=== PATIENT | male | born 1950 | race Caucasian/White ===

== ENCOUNTER 2016-09-30 06:31 | Outpatient (CLI) | payer MEDICARE, OTHER | END 2016-09-30 06:32 | disposition home or self-care (01) | DX: R97.20 Elevated prostate specific antigen [PSA] (principal) ==

== ENCOUNTER 2017-01-05 10:27 | Outpatient (CLI) | payer MEDICARE, OTHER | END 2017-01-05 10:28 | LOC: LAB.WCP 10:27 | PROVIDERS: ATTEND Urology | DX: R97.20 Elevated prostate specific antigen [PSA] (principal) | CPT/HCPCS: 36415; 84153 ==

== ENCOUNTER 2017-02-21 11:02 | Day surgery (SDC) | payer MEDICARE, OTHER ==
[2017-02-21] MEDS ORDERED: LACTATED RINGERS 1,000 ML IV ONE ×2 (11:39→12:21)
[2017-02-21] MEDS ORDERED: MIDAZOLAM 2 MG/2 ML VIAL IVP ONE (12:16)
[2017-02-21] MEDS ORDERED: fentaNYL 100 MCG/2 ML VIAL IVP ONE (12:16)
[2017-02-21 13:36] VITALS: BP 113/76
== END 2017-02-21 11:03 | disposition home or self-care (01) ==
LOC: SDS 11:02
PROVIDERS: ATTEND Surgery
PROC: 0DBM8ZX Excision of Descending Colon, Via Natural or Artificial Opening Endoscopic, Diagnostic (ICD-10-PCS; 2017-02-21)
PROC: 0DBL8ZX Excision of Transverse Colon, Via Natural or Artificial Opening Endoscopic, Diagnostic (ICD-10-PCS; 2017-02-21)
PROC: 0DBN8ZX Excision of Sigmoid Colon, Via Natural or Artificial Opening Endoscopic, Diagnostic (ICD-10-PCS; principal; 2017-02-21 12:15)
DX: D12.4 Benign neoplasm of descending colon (principal); D12.5 Benign neoplasm of sigmoid colon; D12.3 Benign neoplasm of transverse colon; K64.8 Other hemorrhoids; K57.30 Diverticulosis of large intestine without perforation or abscess without bleeding; I10 Essential (primary) hypertension; E78.5 Hyperlipidemia, unspecified; Z85.828 Personal history of other malignant neoplasm of skin; Z87.891 Personal history of nicotine dependence
CPT/HCPCS: 45380; 45385; J7120

== ENCOUNTER 2017-03-01 09:09 | Outpatient (CLI) | payer MEDICARE, OTHER ==
[2017-03-01 14:06] LABS: BASOPHILS % (AUTO) 0.6 %; EOSINOPHILS # (AUTO) 0.3 10^3/uL (0.0-0.7); EOSINOPHILS % (AUTO) 4.5 %; HCT - HEMATOCRIT 47.5 % (42.0-52.0); HGB - HEMOGLOBIN 15.9 g/dL (14.0-18.0); LYMPHOCYTES % (AUTO) 16.9 %; MEAN CORPUSCULAR HEMOGLOBIN 32.5 pg (27.0-31.0); MEAN CORPUSCULAR HGB CONC 33.5 g/dL (32.0-36.0); MONOCYTES # (AUTO) 0.7 10^3/uL (0.0-1.0); MONOCYTES % (AUTO) 11.7 %; NEUTROPHILS # (AUTO) 3.8 10^3/uL (1.5-6.6); NEUTROPHILS % (AUTO) 66.3 %; RED BLOOD COUNT 4.89 10^6/uL (4.70-6.10); RED CELL DISTRIBUTION WIDTH 13.3 % (12.0-15.0); UNCORRECTED WHITE BLOOD COUNT 5.8 x10^3/uL; WHITE BLOOD COUNT 5.8 x10^3/uL (4.8-10.8)
[2017-03-01 14:22] LABS: BILIRUBIN,TOTAL 0.8 mg/dL (0.2-1.0); BUN - BLOOD UREA NITROGEN 13 mg/dL (6-20); CALCIUM 9.5 mg/dL (8.5-10.3); CARBON DIOXIDE - CO2 31 mmol/L (21-32); CHLORIDE 101 mmol/L (101-111); CHOL/HDL RATIO 3.9 (<5.0); CHOLESTEROL 149 mg/dL; CREATININE 0.8 mg/dL (0.6-1.2); GFR - MDRD 96 (>89); GLUCOSE 97 mg/dL (70-100); HDL CHOLESTEROL 38 mg/dL; LDL/HDL RATIO 2.6 (<3.6); POTASSIUM 3.8 mmol/L (3.5-5.0); SODIUM 139 mmol/L (135-145); TOTAL PROTEIN 6.6 g/dL (6.7-8.2); TRIGLYCERIDES 69 mg/dL; VLDL CHOLESTEROL 14 mg/dL
== END 2017-03-01 09:10 | disposition home or self-care (01) ==
LOC: LAB.WCP 09:09
PROVIDERS: ATTEND Family Medicine
DX: I10 Essential (primary) hypertension (principal)
CPT/HCPCS: 36415; 80053; 80061; 85025

== ENCOUNTER 2017-08-04 08:00 | Outpatient (CLI) | payer MEDICARE, OTHER | END 2017-08-04 08:01 | disposition home or self-care (01) | LOC: LAB.WCP 08:00 | PROVIDERS: ATTEND Physician Assistant | DX: Z12.5 Encounter for screening for malignant neoplasm of prostate (principal) | CPT/HCPCS: 36415; G0103; 84153 ==

== ENCOUNTER 2018-01-19 10:20 | Outpatient (CLI) | payer MEDICARE, OTHER ==
[2018-01-19 12:39] LABS: BASOPHILS % (AUTO) 0.6 %; EOSINOPHILS # (AUTO) 0.3 10^3/uL (0.0-0.7); EOSINOPHILS % (AUTO) 4.4 %; HGB - HEMOGLOBIN 16.3 g/dL (14.0-18.0); LYMPHOCYTES # (AUTO) 1.2 10^3/uL (1.5-3.5); LYMPHOCYTES % (AUTO) 19.4 %; MEAN CORPUSCULAR HEMOGLOBIN 32.6 pg (27.0-31.0); MEAN CORPUSCULAR HGB CONC 33.4 g/dL (32.0-36.0); MEAN CORPUSCULAR VOLUME 97.5 fL (80.0-94.0); MEAN PLATELET VOLUME 8.6 fL (7.4-11.4); MONOCYTES # (AUTO) 0.8 10^3/uL (0.0-1.0); MONOCYTES % (AUTO) 13.1 %; NEUTROPHILS # (AUTO) 3.8 10^3/uL (1.5-6.6); NEUTROPHILS % (AUTO) 62.5 %; PLT - PLATELET COUNT 236 10^3/uL (130-450); RED CELL DISTRIBUTION WIDTH 13.3 % (12.0-15.0); WHITE BLOOD COUNT 6.1 x10^3/uL (4.8-10.8)
[2018-01-19 12:59] LABS: ALBUMIN 4.4 g/dL (3.2-5.5); ALBUMIN/GLOBULIN RATIO 2.2 (1.0-2.2); ALKALINE PHOSPHATASE 53 IU/L (42-121); ALT ALANINE AMINOTRANSFERASE 21 IU/L (10-60); AST ASPARTATE AMINOTRANSFERASE 21 IU/L (10-42); BILIRUBIN,TOTAL 0.7 mg/dL (0.2-1.0); BUN - BLOOD UREA NITROGEN 15 mg/dL (6-20); CALCIUM 9.5 mg/dL (8.5-10.3); CARBON DIOXIDE - CO2 34 mmol/L (21-32); CHLORIDE 99 mmol/L (101-111); CHOLESTEROL 163 mg/dL; CREATININE 0.8 mg/dL (0.6-1.2); GFR - MDRD 96 (>89); GLUCOSE 89 mg/dL (70-100); HDL CHOLESTEROL 41 mg/dL; LDL CHOLESTEROL,CALCULATED 102 mg/dL; LDL/HDL RATIO 2.5 (<3.6); SODIUM 137 mmol/L (135-145); TOTAL PROTEIN 6.4 g/dL (6.7-8.2); VLDL CHOLESTEROL 20 mg/dL
[2018-01-19 13:00] LABS: PSA FREE 0.61 ng/mL (0.16-2.81)
[2018-01-19 13:01] LABS: PSA TOTAL 10.48 ng/mL (0.000-2.000)
== END 2018-01-19 10:21 | disposition home or self-care (01) ==
LOC: LAB.WCP 10:20
PROVIDERS: ATTEND Family Medicine
DX: I10 Essential (primary) hypertension (principal); E78.2 Mixed hyperlipidemia; R97.20 Elevated prostate specific antigen [PSA]
CPT/HCPCS: 36415; 80053; 80061; 83721; 84154; 84443; 85025

== ENCOUNTER 2018-05-29 06:06 | Day surgery (SDC) | payer MEDICARE, OTHER ==
[2018-05-29] MEDS ORDERED: LACTATED RINGERS 1,000 ML IV ONE ×2 (06:58→08:05)
[2018-05-29] MEDS ORDERED: MIDAZOLAM 2 MG/2 ML VIAL IVP ONE (07:34)
[2018-05-29] MEDS ORDERED: fentaNYL 250 MCG/5 ML VIAL IVP ONE (07:34)
[2018-05-29 08:40] VITALS: BP 141/82
== END 2018-05-29 06:07 | disposition home or self-care (01) ==
LOC: SDS 06:06
PROVIDERS: ATTEND Surgery
PROC: 0DBN8ZZ Excision of Sigmoid Colon, Via Natural or Artificial Opening Endoscopic (ICD-10-PCS; principal; 2018-05-29 07:30)
DX: D12.5 Benign neoplasm of sigmoid colon (principal); K57.30 Diverticulosis of large intestine without perforation or abscess without bleeding; K64.8 Other hemorrhoids; I10 Essential (primary) hypertension; E78.5 Hyperlipidemia, unspecified; Z85.828 Personal history of other malignant neoplasm of skin; Z87.891 Personal history of nicotine dependence
CPT/HCPCS: 45380; J3010; J7120

== ENCOUNTER 2018-09-20 08:00 | Outpatient (CLI) | payer MEDICARE, OTHER ==
[2018-09-20 13:27] LABS: BASOPHILS # (AUTO) 0.1 10^3/uL (0.0-0.1); EOSINOPHILS # (AUTO) 0.3 10^3/uL (0.0-0.7); EOSINOPHILS % (AUTO) 4.8 %; HGB - HEMOGLOBIN 16.5 g/dL (14.0-18.0); LYMPHOCYTES # (AUTO) 0.9 10^3/uL (1.5-3.5); LYMPHOCYTES % (AUTO) 15.1 %; MEAN CORPUSCULAR HEMOGLOBIN 31.9 pg (27.0-31.0); MEAN CORPUSCULAR HGB CONC 33.6 g/dL (32.0-36.0); MEAN CORPUSCULAR VOLUME 94.9 fL (80.0-94.0); MEAN PLATELET VOLUME 8.7 fL (7.4-11.4); MONOCYTES # (AUTO) 0.7 10^3/uL (0.0-1.0); MONOCYTES % (AUTO) 11.2 %; NEUTROPHILS # (AUTO) 4.1 10^3/uL (1.5-6.6); NEUTROPHILS % (AUTO) 67.9 %; PLT - PLATELET COUNT 226 10^3/uL (130-450); RED BLOOD COUNT 5.16 10^6/uL (4.70-6.10); RED CELL DISTRIBUTION WIDTH 13.7 % (12.0-15.0); WHITE BLOOD COUNT 6.1 x10^3/uL (4.8-10.8)
[2018-09-20 13:53] LABS: ALBUMIN 4.2 g/dL (3.2-5.5); ALBUMIN/GLOBULIN RATIO 1.7 (1.0-2.2); ALKALINE PHOSPHATASE 52 IU/L (42-121); ALT ALANINE AMINOTRANSFERASE 23 IU/L (10-60); AST ASPARTATE AMINOTRANSFERASE 24 IU/L (10-42); BILIRUBIN,TOTAL 0.7 mg/dL (0.2-1.0); BUN - BLOOD UREA NITROGEN 13 mg/dL (6-20); CALCIUM 9.3 mg/dL (8.5-10.3); CARBON DIOXIDE - CO2 32 mmol/L (21-32); CHLORIDE 98 mmol/L (101-111); CHOL/HDL RATIO 3.7 (<5.0); CHOLESTEROL 171 mg/dL; CREATININE 0.9 mg/dL (0.6-1.2); GFR - MDRD 84 (>89); GLUCOSE 103 mg/dL (70-100); HDL CHOLESTEROL 46 mg/dL; LDL CHOLESTEROL,CALCULATED 110 mg/dL; LDL/HDL RATIO 2.4 (<3.6); SODIUM 137 mmol/L (135-145); TOTAL PROTEIN 6.7 g/dL (6.7-8.2); VLDL CHOLESTEROL 15 mg/dL
[2018-09-21 12:40] LABS: HEPATITIS C ANTIBODY NON-REACTIVE (NON-REACTIVE)
== END 2018-09-20 23:59 | disposition home or self-care (01) ==
LOC: LAB.WCP 08:00
PROVIDERS: ATTEND Family Medicine
DX: I10 Essential (primary) hypertension (principal); E78.5 Hyperlipidemia, unspecified; Z11.59 Encounter for screening for other viral diseases
CPT/HCPCS: 36415; 80053; 80061; 83721; 85025; 86803

== ENCOUNTER 2020-09-02 08:00 | Outpatient (CLI) | payer MEDICARE, OTHER ==
[2020-09-02 18:16] LABS: BASOPHILS # (AUTO) 0.1 10^3/uL (0.0-0.1); BASOPHILS % (AUTO) 0.8 %; EOSINOPHILS # (AUTO) 0.3 10^3/uL (0.0-0.7); EOSINOPHILS % (AUTO) 4.6 %; HGB - HEMOGLOBIN 16.1 g/dL (14.0-18.0); LYMPHOCYTES # (AUTO) 1.2 10^3/uL (1.5-3.5); LYMPHOCYTES % (AUTO) 19.8 %; MEAN CORPUSCULAR HEMOGLOBIN 31.8 pg (27.0-31.0); MEAN CORPUSCULAR HGB CONC 32.2 g/dL (32.0-36.0); MEAN CORPUSCULAR VOLUME 98.8 fL (80.0-94.0); MEAN PLATELET VOLUME 10.2 fL (7.4-11.4); MONOCYTES # (AUTO) 0.7 10^3/uL (0.0-1.0); MONOCYTES % (AUTO) 12.2 %; NEUTROPHILS # (AUTO) 3.7 10^3/uL (1.5-6.6); NEUTROPHILS % (AUTO) 62.1 %; PLT - PLATELET COUNT 299 10^3/uL (130-450); RED BLOOD COUNT 5.06 10^6/uL (4.70-6.10); RED CELL DISTRIBUTION WIDTH 12.7 % (12.0-15.0); WHITE BLOOD COUNT 5.9 x10^3/uL (4.8-10.8)
[2020-09-02 18:31] LABS: ALBUMIN 4.2 g/dL (3.2-5.5); ALBUMIN/GLOBULIN RATIO 1.7 (1.0-2.2); ALKALINE PHOSPHATASE 59 IU/L (42-121); ALT ALANINE AMINOTRANSFERASE 22 IU/L (10-60); AST ASPARTATE AMINOTRANSFERASE 19 IU/L (10-42); BILIRUBIN,TOTAL 0.5 mg/dL (0.2-1.0); BUN - BLOOD UREA NITROGEN 14 mg/dL (6-20); CALCIUM 9.5 mg/dL (8.5-10.3); CARBON DIOXIDE - CO2 32 mmol/L (21-32); CHLORIDE 97 mmol/L (101-111); CHOL/HDL RATIO 4.3 (<5.0); CHOLESTEROL 189 mg/dL; CREATININE 0.9 mg/dL (0.6-1.2); GFR - MDRD 83 (>89); GLUCOSE 100 mg/dL (70-100); HDL CHOLESTEROL 44 mg/dL; LDL CHOLESTEROL,CALCULATED 127 mg/dL; LDL/HDL RATIO 2.9 (<3.6); POTASSIUM 3.7 mmol/L (3.5-5.0); SODIUM 137 mmol/L (135-145); TOTAL PROTEIN 6.7 g/dL (6.7-8.2); TRIGLYCERIDES 89 mg/dL; VLDL CHOLESTEROL 18 mg/dL
== END 2020-09-02 23:59 | disposition home or self-care (01) ==
LOC: LAB.WCP 08:00
PROVIDERS: ATTEND Family Medicine
DX: I10 Essential (primary) hypertension (principal); E78.5 Hyperlipidemia, unspecified
CPT/HCPCS: 36415; 80053; 80061; 83721; 85025

== ENCOUNTER 2021-02-23 15:38 | Outpatient (CLI) | payer MEDICARE, OTHER | END 2021-02-23 15:39 | disposition home or self-care (01) | LOC: COV 15:38 | PROVIDERS: ATTEND Family Medicine | DX: U07.1 COVID-19 (principal) ==

== ENCOUNTER 2021-07-06 08:00 | Outpatient (CLI) | payer MEDICARE, OTHER ==
[2021-07-06 20:54] LABS: ALBUMIN 4.7 g/dL (3.2-5.5); ALKALINE PHOSPHATASE 57 IU/L (42-121); ALT ALANINE AMINOTRANSFERASE 20 IU/L (10-60); AST ASPARTATE AMINOTRANSFERASE 19 IU/L (10-42); BILIRUBIN,TOTAL 0.6 mg/dL (0.2-1.0); BUN - BLOOD UREA NITROGEN 15 mg/dL (6-20); CALCIUM 9.6 mg/dL (8.5-10.3); CARBON DIOXIDE - CO2 32 mmol/L (21-32); CHLORIDE 96 mmol/L (101-111); CHOL/HDL RATIO 4.2 (<5.0); CHOLESTEROL 191 mg/dL; CREATININE 0.9 mg/dL (0.6-1.2); GFR - MDRD 83 (>89); GLUCOSE 88 mg/dL (70-100); HDL CHOLESTEROL 46 mg/dL; LDL CHOLESTEROL,CALCULATED 123 mg/dL; LDL/HDL RATIO 2.7 (<3.6); POTASSIUM 3.7 mmol/L (3.5-5.0); SODIUM 138 mmol/L (135-145); TRIGLYCERIDES 110 mg/dL; VLDL CHOLESTEROL 22 mg/dL
[2021-07-06 21:01] LABS: BASOPHILS % (AUTO) 0.6 %; EOSINOPHILS # (AUTO) 0.3 10^3/uL (0.0-0.7); EOSINOPHILS % (AUTO) 5.4 %; HCT - HEMATOCRIT 52.9 % (42.0-52.0); HGB - HEMOGLOBIN 17.8 g/dL (14.0-18.0); LYMPHOCYTES # (AUTO) 1.2 10^3/uL (1.5-3.5); LYMPHOCYTES % (AUTO) 18.3 %; MEAN CORPUSCULAR HEMOGLOBIN 32.4 pg (27.0-31.0); MEAN CORPUSCULAR HGB CONC 33.6 g/dL (32.0-36.0); MEAN CORPUSCULAR VOLUME 96.2 fL (80.0-94.0); MEAN PLATELET VOLUME 10.4 fL (7.4-11.4); MONOCYTES # (AUTO) 0.7 10^3/uL (0.0-1.0); MONOCYTES % (AUTO) 11.6 %; NEUTROPHILS % (AUTO) 63.8 %; PLT - PLATELET COUNT 254 10^3/uL (130-450); RED CELL DISTRIBUTION WIDTH 12.4 % (12.0-15.0); WHITE BLOOD COUNT 6.3 x10^3/uL (4.8-10.8)
== END 2021-07-06 23:59 ==
LOC: LAB.WCP 08:00
PROVIDERS: ATTEND Family Medicine
DX: I10 Essential (primary) hypertension (principal); E78.5 Hyperlipidemia, unspecified
CPT/HCPCS: 36415; 80053; 80061; 83721; 85025

== ENCOUNTER 2022-09-30 12:39 | Outpatient (CLI) | payer MEDICARE, OTHER ==
[2022-09-30 12:54] LABS: BASOPHILS # (AUTO) 0.1 10^3/uL (0.0-0.1); BASOPHILS % (AUTO) 0.8 %; EOSINOPHILS # (AUTO) 0.3 10^3/uL (0.0-0.7); EOSINOPHILS % (AUTO) 5.2 %; HCT - HEMATOCRIT 49.4 % (42.0-52.0); HGB - HEMOGLOBIN 16.3 g/dL (14.0-18.0); LYMPHOCYTES # (AUTO) 1.3 10^3/uL (1.5-3.5); LYMPHOCYTES % (AUTO) 21.3 %; MEAN CORPUSCULAR HEMOGLOBIN 31.7 pg (27.0-31.0); MEAN CORPUSCULAR VOLUME 96.1 fL (80.0-94.0); MEAN PLATELET VOLUME 9.5 fL (7.4-11.4); MONOCYTES # (AUTO) 0.8 10^3/uL (0.0-1.0); MONOCYTES % (AUTO) 12.6 %; NEUTROPHILS # (AUTO) 3.7 10^3/uL (1.5-6.6); NEUTROPHILS % (AUTO) 59.8 %; PLT - PLATELET COUNT 242 10^3/uL (130-450); RED BLOOD COUNT 5.14 10^6/uL (4.70-6.10); RED CELL DISTRIBUTION WIDTH 12.5 % (12.0-15.0); WHITE BLOOD COUNT 6.2 x10^3/uL (4.8-10.8)
[2022-09-30 13:20] LABS: ALBUMIN 4.2 g/dL (3.2-5.5); ALBUMIN/GLOBULIN RATIO 1.6 (1.0-2.2); ALKALINE PHOSPHATASE 50 IU/L (42-121); ALT ALANINE AMINOTRANSFERASE 18 IU/L (10-60); AST ASPARTATE AMINOTRANSFERASE 17 IU/L (10-42); BILIRUBIN,TOTAL 0.5 mg/dL (0.2-1.0); BUN - BLOOD UREA NITROGEN 14 mg/dL (6-20); CARBON DIOXIDE - CO2 34 mmol/L (21-32); CHLORIDE 101 mmol/L (101-111); CHOL/HDL RATIO 4.4 (<5.0); CHOLESTEROL 173 mg/dL; CREATININE 0.8 mg/dL (0.6-1.2); GFR - MDRD 95 (>89); GLUCOSE 113 mg/dL (70-100); HDL CHOLESTEROL 39 mg/dL; LDL CHOLESTEROL,CALCULATED 112 mg/dL; LDL/HDL RATIO 2.9 (<3.6); POTASSIUM 3.5 mmol/L (3.5-5.0); SODIUM 140 mmol/L (135-145); TOTAL PROTEIN 6.9 g/dL (6.7-8.2); TRIGLYCERIDES 112 mg/dL; VLDL CHOLESTEROL 22 mg/dL
== END 2022-09-30 12:40 | disposition home or self-care (01) ==
LOC: LAB 12:39
PROVIDERS: ATTEND Specialist
DX: N32.0 Bladder-neck obstruction (principal); I10 Essential (primary) hypertension; Z85.46 Personal history of malignant neoplasm of prostate; E78.5 Hyperlipidemia, unspecified
CPT/HCPCS: 36415; 80053; 80061; 83721; 84153; 85025

== ENCOUNTER 2023-06-18 10:19 | Outpatient (CLI) | payer MEDICARE, OTHER | END 2023-06-18 10:20 | disposition critical access hospital (66) | LOC: EMS 10:19 | DX: R53.1 Weakness (principal); R29.810 Facial weakness; R47.81 Slurred speech | CPT/HCPCS: A0425; A0429 ==

== ENCOUNTER 2023-06-18 10:30 | Emergency (ER) | payer MEDICARE, OTHER ==
--- NOTE | 2023-06-18 10:39 | ED Physician Documentation ---
PD HPI FOCAL NEURO - Stated complaint Stated Complaint: CODE STROKE - History obtained from History obtained from: Patient, EMS - History of Present Illness Timing - onset: Enter time (829), Today Timing - duration: Hours Timing - details: Abrupt onset, Still present Severity of deficit: Severe Weakness: Face, Arm, Hand, Leg, Foot, Left Associated symptoms: Fall, Head injury Contributing factors: negative: Anticoagulated Baseline status: positive: A&OX3, ambulatory, indep Similar symptoms before: Has not had sx before Recently seen: Not recently seen - Additional information Additional information: Harry Hair is a 73-year-old male previously well who was on the commode this morning straining for stool when he had the onset of left arm weakness he was unable to move his left side at all and collapsed off of the commode. He was brought to the hospital by ambulance. He has never had similar symptoms previously. Review of Systems Constitutional: denies: Fever Eyes: reports: Decreased vision (no vision to the left) Ears: denies: Ear pain Nose: denies: Congestion Throat: denies: Sore throat Cardiac: denies: Chest pain / pressure Respiratory: denies: Dyspnea, Cough GI: reports: Constipation. denies: Abdominal Pain, Nausea, Vomiting, Diarrhea : denies: Dysuria, Frequency Skin: denies: Rash Musculoskeletal: denies: Neck pain, Back pain, Extremity pain Neurologic: reports: Focal weakness, Numbness, Difficulty speaking. denies: Generalized weakness, Altered mental status, Headache, Head injury, LOC PD PAST MEDICAL HISTORY - Past Medical History Cardiovascular: Hypertension, High cholesterol Respiratory: None Endocrine/Autoimmune: None GI: None : None HEENT: Chronic vision loss, Chronic hearing loss Psych: None Musculoskeletal: Osteoarthritis Derm: None - Past Surgical History HEENT: Tonsil/Adenoidectomy - Present Medications Home Medications: Ambulatory Orders Medication Instructions Recorded Confirmed Lovastatin [Altoprev] 60 mg PO HS 02/21/17 06/18/23 hydroCHLOROthiazide 25 mg PO DAILY 02/21/17 06/18/23 [Hydrochlorothiazide] sulfaSALAzine [Azulfidine] 1,500 mg PO DAILY 02/21/17 06/18/23 - Allergies Allergies/Adverse Reactions: Allergies Allergy/AdvReac Type Severity Reaction Status Date / Time peanut Allergy Anaphylaxis Verified 06/18/23 10:51 potato Allergy Anaphylaxis Verified 06/18/23 10:51 pseudoephedrine Allergy Unknown Verified 06/18/23 10:51 [From [facility]] PD ED PE NORMAL - Vitals Vital signs reviewed: Yes (hypesrtensive mild ) - General General: Other (Speech latency of 1 to 2 seconds is present as is a delay in execution of motor connate commands. The patient is oriented and does answer questions appropriately a GCS is 15.) - HEENT HEENT: Atraumatic, PERRL, EOMI, Other (Obvious left facial droop) - Neck Neck: Supple, no meningeal sign, No bony TTP - Cardiac Cardiac: RRR, No murmur - Respiratory Respiratory: No respiratory distress, Clear bilaterally - Abdomen Abdomen: Soft, Non tender - Back Back: No CVA TTP, No spinal TTP - Derm Derm: Normal color, Warm and dry, No rash - Extremities Extremities: No deformity, No edema - Neuro Neuro: Alert and oriented X 3, Other (dysarthric speech is mild, there is a left hemiparasis that is dense on the left. ) Eye Opening: Spontaneous Motor: Obeys Commands Verbal: Oriented GCS Score: 15 - Psych Psych: Normal mood, Normal affect NIHSS - Time Time: 10:33 - Level of Consciousness Level of consciousness: (1) Not alert, but arousable by minor stimulation to obey, or answer LOC Questions: (0) Answers both Q's correct LOC Commands: (0) Performs both correctly - Gaze Best Gaze: (1) Partial gaze palsy - Visual Visual: (2) Complete Hemianopia - Facial Palsy Facial Palsy: (2) Partial paralysis - Motor Arms (both separate) Motor Arm (right): (0) No drift Motor Arm (left): (4) No movement - Motor Legs (both separate) Motor Leg (right): (0) No drift Motor Leg (left): (4) No movement - Limb Ataxia Limb Ataxia: (2) Present in 2 limbs - Sensory Sensory: (2) Zalrof-cx-fscyf loss - Best Language Best Language: (0) No aphasia - Dysarthria Dysarthria: (1) Ywov-ks-lyvdwczk dysarthria - Extinction and Inattention (formally neg Extinction and inattention: (1) Visual,tactile,auditory,spatial, or personal inattention - Total Score/Results Total Score/Result: 20 Results - Vitals Vitals: Vital Signs - 24 hr 06/18/23 06/18/23 06/18/23 10:31 11:00 11:30 Temperature 36.0 C L 36 C L Heart Rate 78 81 84 Respiratory 18 16 16 Rate Blood Pressure 132/68 H 149/66 H 158/92 H O2 Saturation 95 97 96 06/18/23 06/18/23 06/18/23 12:00 12:30 12:55 Temperature Heart Rate 80 86 Respiratory 13 20 Rate Blood Pressure 169/88 H 161/77 H 156/67 H O2 Saturation 97 99 06/18/23 06/18/23 13:00 13:30 Temperature 36.8 C 36.8 C Heart Rate 106 H 100 Respiratory 18 18 Rate Blood Pressure 137/65 H 128/67 O2 Saturation 96 96 Oxygen O2 Source Room air - EKG (time done) 1055 EKG releavant findings:: EKG personally interpreted by author of this note. Relevant findings are: Rate: Rate (enter#) (76) Intervals: Prolonged NH, Wide QRS Ischemia: Normal ST segments Compare to prior EKG: Old EKG unavailable Computer interpretation: Agree with computer - Labs Labs: Laboratory Tests 06/18/23 06/18/23 06/18/23 11:20 11:20 11:20 WBC 7.1 RBC 5.20 Hgb 16.5 Hct 48.7 MCV 93.7 MCH 31.7 H MCHC 33.9 RDW 12.2 Plt Count 227 MPV 9.2 Neut # (Auto) 5.1 Lymph # (Auto) 1.0 L [place] # (Auto) 0.7 Eos # (Auto) 0.2 Baso # (Auto) 0.0 Absolute Nucleated RBC 0.00 Nucleated RBC % 0.0 PT 12.2 INR 1.1 Sodium 135 Potassium 3.5 Chloride 98 L Carbon Dioxide 30 Anion Gap 7.0 BUN 15 Creatinine 1.0 Estimated GFR (MDRD) 73 L Glucose 125 H Calcium 9.7 Total Bilirubin 0.5 AST 14 ALT 14 Alkaline Phosphatase 53 Total Protein 6.3 L Albumin 4.1 Globulin 2.2 Albumin/Globulin Ratio 1.9 Lipase 12 Urine Color Urine Clarity Urine pH Ur Specific [place] Urine Protein Urine Glucose (UA) Urine Ketones Urine Occult Blood Urine Nitrite Urine Bilirubin Urine Urobilinogen Ur Leukocyte Esterase Ur Microscopic Review Urine Culture Comments 06/18/23 12:35 WBC RBC Hgb Hct MCV MCH MCHC RDW Plt Count MPV Neut # (Auto) Lymph # (Auto) [place] # (Auto) Eos # (Auto) Baso # (Auto) Absolute Nucleated RBC Nucleated RBC % PT INR Sodium Potassium Chloride Carbon Dioxide Anion Gap BUN Creatinine Estimated GFR (MDRD) Glucose Calcium Total Bilirubin AST ALT Alkaline Phosphatase Total Protein Albumin Globulin Albumin/Globulin Ratio Lipase Urine Color YELLOW Urine Clarity CLEAR Urine pH 7.0 Ur Specific [place] 1.010 Urine Protein NEGATIVE Urine Glucose (UA) NEGATIVE Urine Ketones NEGATIVE Urine Occult Blood NEGATIVE Urine Nitrite NEGATIVE Urine Bilirubin NEGATIVE Urine Urobilinogen 0.2 (NORMAL) Ur Leukocyte Esterase NEGATIVE Ur Microscopic Review NOT INDICATED Urine Culture Comments NOT INDICATED - Rads (name of study) CTA head Relevant Findings:: Prelim report reviewed (Impression: Acute hemorrhagic infarct in the region of the right basal ganglion. Small amount of surrounding vasogenic edema and subarachnoid hemorrhage. Minimal mass effect on the right lateral ventricle. No intraventricular blood products.), EMP independent interpretation of test Procedures - IVC sono (time) 1100 Bedside IVC sono: IVC measures (cm) (1.34), Dehydration (est less than 500ml deficit) PD Medical Decision Making - ED course Complexity details: reviewed old records, reviewed results, re-evaluated patient, considered differential, d/w patient, d/w family, d/w professional benefits sales consultant (Dr. Goodson stroke team recommends blood pressure control and admission for hemorrhagic infarct. ) Reviewed Lab Results: We reviewed a complete blood count count showing a normal white blood cell count of 7.1 normal hemoglobin hematocrit and platelets with normal differential. A coagulation profile was normal with an INR of 1.1. Chemistries showed normal electrolytes, normal kidney and liver function. Urinalysis was unremarkable. These benign-appearing laboratory results do not contribute to a specific diagnosis. A CT scan with contrast of the head was obtained on arrival of the patient and this specific test yielded a diagnosis of hemorrhagic CVA. The patient has a history of hypertension and his hemorrhage is attributed to hypertension. Drug Therapy Requiring Monitoring for Toxicity: The patient was placed on a nicardipine drip, with cardiac monitoring, and titrated to effect. ED course: Harry Hair is a 73-year-old male who was on the commode this morning straining for stool whew he had the sudden loss of the use of his left arm. He collapsed off of the commode. He is not able to move his left side at all now and he is brought to the hospital by ambulance. He denies a headache he denies any injury to his head and he has not had similar symptoms previously. He denies recent injury or illness. The patient was evaluated in the back of the ambulance and taken to the CAT scanner where hemorrhagic infarct was diagnosed. We had consulted the stroke team for telestroke at the time of the patient's arrival and the patient does not meet criteria for clot lysis. Recommendations for blood pressure control to be under 160. We sought a bed for this patient and I spoke with Dr. Celestin the neurosurgeon at [facility] who recommended we keep the blood pressure under 140 with a nicardipine drip and this was begun on the patient. I then spoke with Dr. Dirk Walker who is the chemical detection expert at [facility] and he will accept the patient in transfer. - Critical Care Time(min): 40 Comments: Repeat bedside evaluations, evaluation with POCUS for volume, consultation with Neurology, neurosurgery and chemical detection expert application of nicardipine drip and coordination for transfer to tertiary hospital. Time Includes: Direct patient care, Review records, Reassess patient, Document care, Coordinate care, Medical consult, Family consult for tx dec Data interpretation: Labs, Pulse ox, CXR, Prior EKG Departure - Departure Disposition: 02 Transfer Acute Care Hosp Clinical Impression: Hemorrhagic cerebrovascular accident (CVA) Discharge Date/Time: 06/18/23 13:51
--- NOTE | 2023-06-18 11:16 | CT Report ---
PROCEDURE: Head W/O Stroke Protocol INDICATIONS: L barrera TECHNIQUE: Noncontrast 4.5 mm thick angled axial sections acquired from the foramen magnum to the vertex, with c oronal reformats. For radiation dose reduction, the following was used: automated exposure control, adjustment of mA and/or kV according to patient size. COMPARISON: None. FINDINGS: Image quality: Excellent. CSF spaces: Basal cisterns are patent. No subdural hematoma.. Ventricles are normal in size and sha pe. No intraventricular blood products. Brain: No midline shift. No dense blood products in the right basal ganglia. This measures 2.7 x 1.8 cm, (). There is surrounding vasogenic edema. There is a small amount of surrounding subarachnoi d hemorrhage. There is minimal effacement of the right lateral ventricle. Mora-white matter interface is normal. Skull and face: Calvarium and visualized facial bones are intact, without suspicious lesions. Sinuses: Visualized sinuses and mastoids are clear. IMPRESSION: Acute hemorrhagic infarct in the region of the right basal ganglia. Small amount of surrounding vasogenic edema and subarachnoid hemorrhage. Minimal mass effect on the r ight lateral ventricle. No intraventricular blood products. Results were communicated to Dr. Marie at 06/18/2023 11:11 AM PST. This study fulfills neurological imaging criteria for inclusion or exclusion of acute stroke therapie s based on available published neurological imaging guidelines. Reviewed by: Arnold Daniel MD on 06/18/2023 11:14 AM PST Approved by: Arnold Daniel MD on 06/18/2023 11:14 AM PST Station ID: [id number]
[2023-06-18 11:24] LABS: BASOPHILS % (AUTO) 0.6 %; EOSINOPHILS # (AUTO) 0.2 10^3/uL (0.0-0.7); EOSINOPHILS % (AUTO) 3.1 %; HCT - HEMATOCRIT 48.7 % (42.0-52.0); HGB - HEMOGLOBIN 16.5 g/dL (14.0-18.0); LYMPHOCYTES % (AUTO) 14.1 %; MEAN CORPUSCULAR HEMOGLOBIN 31.7 pg (27.0-31.0); MEAN CORPUSCULAR HGB CONC 33.9 g/dL (32.0-36.0); MEAN CORPUSCULAR VOLUME 93.7 fL (80.0-94.0); MEAN PLATELET VOLUME 9.2 fL (7.4-11.4); MONOCYTES # (AUTO) 0.7 10^3/uL (0.0-1.0); MONOCYTES % (AUTO) 9.8 %; NEUTROPHILS # (AUTO) 5.1 10^3/uL (1.5-6.6); NEUTROPHILS % (AUTO) 72.1 %; PLT - PLATELET COUNT 227 10^3/uL (130-450); RED CELL DISTRIBUTION WIDTH 12.2 % (12.0-15.0); WHITE BLOOD COUNT 7.1 x10^3/uL (4.8-10.8)
[2023-06-18 11:32] LABS: INR 1.1 (0.8-1.2); PT - PROTHROMBIN TIME 12.2 secs (9.9-12.6)
[2023-06-18 11:43] LABS: ALBUMIN 4.1 g/dL (3.2-5.5); ALBUMIN/GLOBULIN RATIO 1.9 (1.0-2.2); BILIRUBIN,TOTAL 0.5 mg/dL (0.2-1.0); CALCIUM 9.7 mg/dL (8.5-10.3); POTASSIUM 3.5 mmol/L (3.5-4.5); TOTAL PROTEIN 6.3 g/dL (6.4-8.9)
[2023-06-18] MEDS ORDERED: NICARDIPINE HCL 25 MG in SODIUM CHLORIDE 0.9% 240 ML IV STA (12:02)
--- NOTE | 2023-06-18 12:19 | CT Report ---
PROCEDURE: CT Angio Head/Neck INDICATIONS: L barrera TECHNIQUE: After the administration of intravenous contrast, 1 mm thick sections acquired from the aortic arch t hrough the [place] of [place]. 3-dimensional xbjunnh-dglgljwxu-baeulvwbuq (MIP) and/or volume renderin g reformats were acquired of the central intracranial vasculature and neck separately. For radiation dose reduction, the following was used: automated exposure control, adjustment of mA and/or kV acco rding to patient size. CONTRAST: Omni 300 80ml COMPARISON: Noncontrast head CT, 06/18/2023. FINDINGS: Image quality: This study is limited by bolus timing. There is streak artifact and quantum mottle art ifact seen to the level of the shoulders. HEAD CT: CSF Spaces: Basal cisterns are patent. No extra-axial fluid collections. Ventricles are normal in size and shape. Brain: There is extensive right-sided hemorrhage, centered within the basal ganglia. Skull and face: Calvarium and visualized facial bones appear intact, without suspicious lesions. Sinuses: Visualized sinuses and mastoids are clear. HEAD CT ANGIOGRAPHY: Anterior circulation: Intracranial internal carotid arteries are normal in size and flow. The flow within the paired anterior cerebral arteries is normal and symmetric. The flow within the middle cer ebral arteries is normal and symmetric. The anterior communicating artery is seen. No aneurysms are seen. Posterior circulation: Visualized portions of the vertebral arteries demonstrate normal caliber, and join to form a normal appearing basilar artery. Flow within the posterior cerebral arteries is norm al and symmetric. No aneurysms are seen. NECK CT ANGIOGRAPHY: Carotid system: The great vessels demonstrate a conventional anatomy as they arise from the aortic a rch. The origins of the common carotid arteries appear patent. The common carotid arteries demonstr ate normal caliber and courses. Focal atherosclerotic calcification can be seen involving the left ca rotid bifurcation region. No hemodynamically significant stenosis can be seen involving either caroti d bifurcation. The more distal internal carotid arteries demonstrate normal course and caliber. Posterior circulation: The vertebral arteries are poorly evaluated on this study. Soft tissues: Visualized neck soft tissues demonstrate no suspicious abnormalities. Bones: No suspicious bony lesions. Visualized cervical spine appears normally aligned. Moderate ce rvical spine degenerative change is seen. IMPRESSION: The study is limited by bolus timing. To the limits of this study, no cause of the intraparenchymal h emorrhage can be seen. No hemodynamically significant stenosis can be seen within the carotids. Right-sided intraparenchymal hemorrhage again seen. The estimate of stenosis included in the report of the imaging study was calculated using the NASCET method Reviewed by: Ash Cooley MD on 06/18/2023 11:18 AM [facility] Approved by: Ash Cooley MD on 06/18/2023 11:18 AM [facility] Station ID: [id number]
[2023-06-18 12:45] LABS: BILIRUBIN,URINE NEGATIVE (NEGATIVE); GLUCOSE, URINE (UA) NEGATIVE (NEGATIVE); KETONES,URINE (UA) NEGATIVE (NEGATIVE); LEUKOCYTE ESTERASE, URINE NEGATIVE (NEGATIVE); NITRITE,URINE NEGATIVE (NEGATIVE); OCCULT BLOOD,URINE NEGATIVE (NEGATIVE); PROTEIN,URINE NEGATIVE (NEGATIVE); UROBILINOGEN,URINE 0.2 (NORMAL) E.U./dL (NORMAL)
[2023-06-18 12:47] LABS: CLARITY,URINE CLEAR (CLEAR)
[2023-06-18] MEDS ORDERED: iohexoL-300 100 ML VIAL IVP ONE (12:51)
[2023-06-18 13:25] VITALS: O2SAT 96
[2023-06-18 13:35] VITALS: BP 128/67
== END 2023-06-18 13:51 | disposition short-term general hospital (02) ==
LOC: EDUNIT# → ED 10:30
DX: I62.9 Nontraumatic intracranial hemorrhage, unspecified (principal); I10 Essential (primary) hypertension; E78.00 Pure hypercholesterolemia, unspecified; Z79.899 Other long term (current) drug therapy
CPT/HCPCS: 36415; 70450; 70496; 70498; 80053; 81003; 83690; 85025; 85610; 93005; 96374; 99285; 99291; Q9967; 81001; 87086

== ENCOUNTER 2023-11-04 02:23 | Outpatient (CLI) | payer MEDICARE, OTHER | END 2023-11-04 23:59 | disposition critical access hospital (66) | LOC: EMS 02:23 | DX: T85.528A Displacement of other gastrointestinal prosthetic devices, implants and grafts, initial encounter (principal); I69.322 Dysarthria following cerebral infarction; I69.354 Hemiplegia and hemiparesis following cerebral infarction affecting left non-dominant side | CPT/HCPCS: A0425; A0429 ==

== ENCOUNTER 2023-11-04 02:53 | Outpatient (CLI) | payer MEDICARE, OTHER | END 2023-11-04 23:59 | LOC: EMS 02:53 | PROVIDERS: ATTEND Emergency Medicine | DX: T85.528A Displacement of other gastrointestinal prosthetic devices, implants and grafts, initial encounter (principal); R41.0 Disorientation, unspecified | CPT/HCPCS: A0425; A0428 ==

== ENCOUNTER 2023-11-04 11:30 | Outpatient (CLI) | payer MEDICARE, OTHER | END 2023-11-04 23:59 | disposition critical access hospital (66) | LOC: EMS 11:30 | DX: T85.528A Displacement of other gastrointestinal prosthetic devices, implants and grafts, initial encounter (principal); I69.354 Hemiplegia and hemiparesis following cerebral infarction affecting left non-dominant side | CPT/HCPCS: A0425; A0429 ==

== ENCOUNTER 2023-11-04 11:39 | Emergency (ER) | payer MEDICARE, OTHER ==
[2023-11-04] MEDS: LIDOCAINE 2% URO-JET 5 ML SYRINGE UR STA (11:56)
[2023-11-04] MEDS: DIATRIZOATE MEGLU/DIATRIZO SOD 30 ML BOTTLE PO ONE ×2 (13:04→17:15)
--- NOTE | 2023-11-04 13:59 | XRAY Report ---
PROCEDURE: No-Charge 1V Abdomen INDICATIONS: Arriaga placement into G tube site TECHNIQUE: 1 view of the abdomen were acquired. COMPARISON: None. FINDINGS: Injection of contrast into the G-tube site demonstrates intraluminal contrast within the stomach and duodenum. IMPRESSION: Intraluminal contrast within the stomach and duodenum. Reviewed by: Clem Nice MD on 11/04/2023 1:58 PM PDT Approved by: Clem Nice MD on 11/04/2023 1:58 PM PDT Station ID: [id number]
[2023-11-04] MEDS: SODIUM CHLORIDE 0.9% 1,000 ML IV STA (14:25)
[2023-11-04] MEDS: LORazepam 2 MG/ML VIAL IVP STA (15:00)
--- NOTE | 2023-11-04 15:04 | ED Physician Documentation ---
History of Present Illness - Stated complaint Stated Complaint: GTUBE REP - Chief complaint Chief Complaint: General - History obtained from History obtained from: EMS, Other (Dr. Pastrana) - Additonal information Additional information: Patient is a 73-year-old male with a history of hemorrhagic stroke presenting from [facility] after his PEG tube fell out sometime overnight. Patient was seen in the early hours of the morning in the emergency department and ED staff at that time was unable to place another G-tube and unable to place anything else to keep the tract open. He was discharged back to [facility] with instructions to contact surgery for follow-up. However patient is dependent on the G-tube for feeds and medications and Dr. Pastrana was called this morning from [facility]. Dr. Pastrana spoke with myself this morning and we agreed that patient should return to the emergency department for reattempt at inserting a feeding tube. Dr. Pastrana believes the G tube has been present for 4-5 months so The tract should be mature. Review of Systems Unable to obtain: Other (H/O CVA) PD PAST MEDICAL HISTORY - Past Medical History Past Medical History: Yes Cardiovascular: Hypertension, High cholesterol Respiratory: None Endocrine/Autoimmune: None GI: None : None HEENT: Chronic vision loss, Chronic hearing loss Psych: None Musculoskeletal: Osteoarthritis Derm: None - Past Surgical History Past Surgical History: Yes HEENT: Tonsil/Adenoidectomy - Present Medications Home Medications: Ambulatory Orders Medication Instructions Recorded Confirmed Lovastatin [Altoprev] 60 mg PO HS 02/21/17 11/04/23 hydroCHLOROthiazide 25 mg PO DAILY 02/21/17 11/04/23 [Hydrochlorothiazide] sulfaSALAzine [Azulfidine] 1,500 mg PO DAILY 02/21/17 11/04/23 Amlodipine Besylate [Norvasc] 10 mg PO DAILY 11/04/23 11/04/23 Atorvastatin Calcium [Lipitor] 80 mg PO DAILY 11/04/23 11/04/23 Enoxaparin Sodium [Lovenox] 40 mg SQ DAILY 11/04/23 11/04/23 Famotidine [Acid Consignee] 20 mg PO DAILY 11/04/23 11/04/23 Lisinopril [Zestril] 5 mg PO DAILY 11/04/23 11/04/23 Montelukast [Singulair] 10 mg PO QPM 11/04/23 11/04/23 - Allergies Allergies/Adverse Reactions: Allergies Allergy/AdvReac Type Severity Reaction Status Date / Time peanut Allergy Anaphylaxis Verified 11/04/23 11:49 potato Allergy Anaphylaxis Verified 11/04/23 11:49 pseudoephedrine Allergy Unknown Verified 11/04/23 11:49 [From [facility]] - Social History Does the pt smoke?: No Smoking Status: Never smoker Does the pt drink ETOH?: No Does the pt have substance abuse?: No - Immunizations Immunizations are current?: Yes - POLST Patient has POLST: No PD ED PE NORMAL - General General: No acute distress, Well developed/nourished - HEENT HEENT: Atraumatic, Other (Dry mucous membranes) - Cardiac Cardiac: RRR - Respiratory Respiratory: No respiratory distress, Clear bilaterally - Abdomen Abdomen: Normal bowel sounds, Soft, Non tender, Non distended, Other (G-tube site in left upper abdomen with no surrounding erythema or abnormal drainage) Results - Vitals Vitals: Vital Signs - 24 hr 11/04/23 11/04/23 11/04/23 11:44 14:02 16:44 Temperature 36.2 C L Heart Rate 100 110 H 68 Respiratory 20 20 20 Rate Blood Pressure 117/76 126/88 H 126/78 O2 Saturation 97 94 95 Oxygen O2 Source Room air Procedures - General procedure General procedure: G-tube site was cleaned with chlorhexidine. An 8 [place] Stearns catheter was inserted without much difficulty. I did let this sit for 15 to 20 minutes and did attempt to dilate the tract with the next larger size Stearns catheter at 10 Maldivian but this would not advance that so Another 8 Mal[place]ian stearns was placed. Placement confirmed in the stomach with an abdominal x-ray and Gastrografin. PD Medical Decision Making - ED course Complexity details: reviewed results, d/w patient ED course: Patient here with a G-tube dislodgment that occurred at least 9 hours ago. Patient was seen earlier in the emergency department overnight and they were unable to place anything into the tract. Steve had spoken with general surgery and patient is brought back to the ER. I was able to place an 8 [place] Stearns catheter into the tract but unable to dilate to anything larger. Dr. Pastrana was in the OR for a long case but was Available afterwards and graciously has assisted us in the emergency department. With the use of a guidewire she was able to dilate the tract up to a 16 Mal[place]ian and a 16 Maldiv[place] Stearns catheter was left in place. We were unable to dilate any larger to accommodate an 18 Maldivian G-tube which is the smallest size that we have here. Per Dr. Ponce this Stearns can be used for the weekend and then patient should follow-up with interventional radiology to have the tract dilated further for placement of a G- tube. Patient's abdominal exam remained benign. Did confirm placement with 2 x-rays of each Stearns. No signs of extravasation. Departure - Departure Disposition: 01 Home, Self Care Clinical Impression: Gastrostomy tube dependent, Dislodged gastrostomy tube Condition: Stable Comments: You were evaluated after a year G-tube dislodged early this morning. On our visit today we were able to place a catheter to keep the tract open. The largest catheter we were able to place is a 16 [place] Stearns catheter. This can be used for the administration of medications.However we were unable to dilate this tract further even with the assistance of our general surgeon to a larger size For placement of a gastrostomy tube. The current tube can be used over the weekend but you will need to follow-up as an outpatient. You need to make an appointment made with an interventional radiology department so that they can dilate the tract further and then place another feeding tube. Please take extra caution to keep with the current catheter in place. Forms: PCP List
[2023-11-04] MEDS: fentaNYL 100 MCG/2 ML VIAL IVP STA (16:40)
[2023-11-04] MEDS ORDERED: fentaNYL 100 MCG/2 ML VIAL ONE (16:54)
--- NOTE | 2023-11-04 18:05 | XRAY Report ---
PROCEDURE: No-Charge 1V Abdomen INDICATIONS: 16fr stearns placement TECHNIQUE: 1 view of the abdomen were acquired. COMPARISON: Abdominal radiograph from earlier the same day. FINDINGS: Percutaneous gastrostomy tube seen projecting over the central abdomen. Injected contrast material is seen within the distal stomach and proximal duodenum. IMPRESSION: Injected contrast material is seen within the distal stomach and duodenum. Reviewed by: Rhett Mcmanus MD on 11/04/2023 6:04 PM PDT Approved by: Rhett Mcmanus MD on 11/04/2023 6:04 PM PDT Station ID: [id number]
[2023-11-04 18:11] VITALS: BP 127/85; O2SAT 94
--- NOTE | 2023-11-04 18:14 | CONSULTATION NOTE ---
Referring Provider Name of Referring Provider:: Santi Park Consult Date: 11/04/23 Chief Complaint - Chief Complaint Chief Complaint: dislodged/removed G tube History of Present Illness - History Obtained From History obtained from: referring facility/ED doc - History of Present Illness HPI Comment/Other: 73yoM with h/o CVA in now depending on G tube for nutrition and meds (in place since Jun 2023). G tube was dislodged ~12 hrs ago, and presents to ED for replacement. Dr. Park in ED was able to secure an 8F stearns in the tract, but unable to place any larger catheter, thus asked for assistance from surgery. History - Past Medical History Cardiovascular: reports: Hypertension, High cholesterol Respiratory: reports: None Endocrine/Autoimmune: reports: None GI: reports: None : reports: None HEENT: reports: Chronic vision loss, Chronic hearing loss Psych: reports: None Musculoskeletal: reports: Osteoarthritis Derm: reports: None MRSA Hx?: No - Past Surgical History HEENT: reports: Tonsil/Adenoidectomy - POLST Patient has POLST: No Meds/Allgy - Home Medications Home Medications: Ambulatory Orders Medication Instructions Recorded Confirmed Lovastatin [Altoprev] 60 mg PO HS 02/21/17 11/04/23 hydroCHLOROthiazide 25 mg PO DAILY 02/21/17 11/04/23 [Hydrochlorothiazide] sulfaSALAzine [Azulfidine] 1,500 mg PO DAILY 02/21/17 11/04/23 Amlodipine Besylate [Norvasc] 10 mg PO DAILY 11/04/23 11/04/23 Atorvastatin Calcium [Lipitor] 80 mg PO DAILY 11/04/23 11/04/23 Enoxaparin Sodium [Lovenox] 40 mg SQ DAILY 11/04/23 11/04/23 Famotidine [Acid Layout Technician] 20 mg PO DAILY 11/04/23 11/04/23 Lisinopril [Zestril] 5 mg PO DAILY 11/04/23 11/04/23 Montelukast [Singulair] 10 mg PO QPM 11/04/23 11/04/23 - Allergies Allergies/Adverse Reactions: Allergies Allergy/AdvReac Type Severity Reaction Status Date / Time peanut Allergy Anaphylaxis Verified 11/04/23 11:49 potato Allergy Anaphylaxis Verified 11/04/23 11:49 pseudoephedrine Allergy Unknown Verified 11/04/23 11:49 [From [facility]] Exam - Vital Signs Reviewed Vital Signs: Yes Vital Signs: Vital Signs x48h Temp Pulse Resp BP Pulse Ox 11/04/23 18:07 68 20 127/85 H 94 11/04/23 16:44 68 20 126/78 95 11/04/23 14:02 110 H 20 126/88 H 94 11/04/23 11:44 36.2 C L 100 20 117/76 97 - Physical Exam General Appearance: positive: No acute distress, Alert Eyes Bilateral: positive: Normal inspection, PERRL ENT: positive: No signs of dehydration Neck: positive: Nml inspection Respiratory: positive: Chest non-tender, No respiratory distress, Breath sounds nml Cardiovascular: positive: Regular rate & rhythm, No murmur, No gallop Peripheral Pulses: positive: 2+ Abdomen: positive: Non-tender, No organomegaly, Nml bowel sounds, No distention, Other (G tube site with minimal granulation tissue, no surrounding erythema, cellulitis, induration, fluctuance.) Back: positive: Nml inspection Skin: positive: Color nml, No rash, Warm, Dry Extremities: positive: Non-tender, Full ROM, Nml appearance Neurologic/Psychiatric: positive: Other (at baseline) Conclusion and Plan - Consultation Note Consultation Note: 73yoM with h/o CVA depending on g tube for nutrition and meds, however g tube was removed/dislodged at his care facility approximately 12 hours ago. I was able to pass a guidewire through the 8Fr stearns that Dr. Park had placed (and had confirmed placement via contrasted AXR). I was able to pass the following over the wire: 12Fr Coude, 16Fr Coude. I was unable to pass a 20Fr Coude, and an 18Fr Coude passed under significant resistance only about 1.5cm deep to skin level. My goal had been to secure an 18Fr G tube, however I was unable to dilate the tract this much. Thus a 16Fr stearns was placed over the wire and secured via its balloon and tape/dressing for use as a feeding/medication tube. Follow up contrasted study confirmed proper placement within the lumen of the stomach. Recommend referral to original placement site with IR to upsize further, however 16F stearns may be used as G tube this weekend. Em Pastrana DO FACS General Surgery
== END 2023-11-04 19:19 | disposition home or self-care (01) ==
LOC: EDUNIT# → ED 11:39
DX: Z43.1 Encounter for attention to gastrostomy (principal); Z86.73 Personal history of transient ischemic attack (TIA), and cerebral infarction without residual deficits
CPT/HCPCS: 74018; 99284; J2060; Q9963

== ENCOUNTER 2023-11-04 18:59 | Outpatient (CLI) | payer MEDICARE, OTHER | END 2023-11-04 23:59 | LOC: EMS 18:59 | PROVIDERS: ATTEND Emergency Medicine | DX: I69.359 Hemiplegia and hemiparesis following cerebral infarction affecting unspecified side (principal); Z93.1 Gastrostomy status | CPT/HCPCS: A0425; A0428 ==

== ENCOUNTER 2023-11-20 17:56 | Outpatient (CLI) | payer MEDICARE, OTHER | END 2023-11-20 23:59 | disposition critical access hospital (66) | LOC: WFO 17:56 | DX: T85.528A Displacement of other gastrointestinal prosthetic devices, implants and grafts, initial encounter (principal); R41.82 Altered mental status, unspecified; Z74.01 Bed confinement status | CPT/HCPCS: A0425; A0428; A0429 ==

== ENCOUNTER 2023-11-20 18:02 | Emergency (ER) | payer MEDICARE, OTHER ==
[2023-11-20] MEDS: DIATRIZOATE MEGLU/DIATRIZO SOD 30 ML BOTTLE PO ONE (18:19)
--- NOTE | 2023-11-20 18:30 | ED Physician Documentation ---
History of Present Illness - Stated complaint Stated Complaint: REMOVED FEEDING TUBE - Chief complaint Chief Complaint: General - History obtained from History obtained from: Patient, EMS - History of Present Illness Timing: Today Pain level max: 0 Pain level now: 0 - Additonal information Additional information: 73-year-old male with dysphagia secondary to a stroke along with hemiplegia. [place] [facility], [facility], he apparently had a gastrostomy tube that was unable to be replaced last week, but a Arriaga catheter was placed. Today he apparently pulled out the Arriaga catheter. No nonnormal was called and he was brought here. PD PAST MEDICAL HISTORY - Past Medical History Past Medical History: Yes Cardiovascular: Hypertension, High cholesterol Respiratory: None Endocrine/Autoimmune: None GI: None : None HEENT: Chronic vision loss, Chronic hearing loss Psych: None Musculoskeletal: Osteoarthritis Derm: None - Past Surgical History Past Surgical History: Yes HEENT: Tonsil/Adenoidectomy - Present Medications Home Medications: Ambulatory Orders Medication Instructions Recorded Confirmed Lovastatin [Altoprev] 60 mg PO HS 02/21/17 11/04/23 hydroCHLOROthiazide 25 mg PO DAILY 02/21/17 11/04/23 [Hydrochlorothiazide] sulfaSALAzine [Azulfidine] 1,500 mg PO DAILY 02/21/17 11/04/23 Amlodipine Besylate [Norvasc] 10 mg PO DAILY 11/04/23 11/04/23 Atorvastatin Calcium [Lipitor] 80 mg PO DAILY 11/04/23 11/04/23 Enoxaparin Sodium [Lovenox] 40 mg SQ DAILY 11/04/23 11/04/23 Famotidine [Acid Operations Advisor] 20 mg PO DAILY 11/04/23 11/04/23 Lisinopril [Zestril] 5 mg PO DAILY 11/04/23 11/04/23 Montelukast [Singulair] 10 mg PO QPM 11/04/23 11/04/23 - Allergies Allergies/Adverse Reactions: Allergies Allergy/AdvReac Type Severity Reaction Status Date / Time peanut Allergy Anaphylaxis Verified 11/20/23 18:07 potato Allergy Anaphylaxis Verified 11/20/23 18:07 pseudoephedrine Allergy Unknown Verified 11/20/23 18:07 [From [facility]] - Social History Does the pt smoke?: No Smoking Status: Never smoker Does the pt drink ETOH?: No Does the pt have substance abuse?: No - Immunizations Immunizations are current?: Yes - POLST Patient has POLST: No PD ED PE NORMAL - Vitals Vital signs reviewed: Yes - General General: Alert and oriented X 3, No acute distress - HEENT HEENT: Moist mucous membranes - Neck Neck: Supple, no meningeal sign - Abdomen Abdomen: Soft, Non tender, Non distended, Other (Gastrostomy stoma in the left upper quadrant.) - Derm Derm: Warm and dry Results - Vitals Vitals: Vital Signs - 24 hr 11/20/23 18:07 Temperature 36.8 C Heart Rate 98 Respiratory 18 Rate Blood Pressure 112/74 O2 Saturation 97 Oxygen O2 Source Room air PD Medical Decision Making - ED course Complexity details: reviewed results, re-evaluated patient, considered differential, d/w patient ED course: An 18 Brazilian gastrostomy tube was placed through the stoma with return of gastric contents. Flushes easily. A tube check was performed with Gastrografin to ensure proper placement. The gastrostomy tube was held in place by the in flated balloon and the stopper was placed down onto the skin. A small amount of gauze was placed under the stopper to help protect the skin from any irritant. Patient will be sent back to his long term for further care. Departure - Departure Disposition: 01 Home, Self Care Clinical Impression: Dislodged gastrostomy tube Condition: Good Instructions: ED G Tube Replacement Follow-Up: your,doctor as scheduled [Other] Comments: His feeding tube was replaced today with an 18 Brazilian gastrostomy tube. Please follow-up with his doctor for further care.
--- NOTE | 2023-11-20 18:39 | XRAY Report ---
PROCEDURE: Abdomen 1 V INDICATIONS: g tube check TECHNIQUE: One view of the abdomen acquired. COMPARISON: None. FINDINGS: Surgical changes and devices: Contrast is seen within G-tube with contrast filling suggesting gastric rugae within normal gastric confines. Bowel: Bowel gas pattern is normal. Soft tissues: No suspicious abdominal calcifications. Visualized solid organ contours appear normal in size. Bones: No suspicious bony lesions. IMPRESSION: Appropriate G-tube placement. Reviewed by: Reynaldo Wood MD on 11/20/2023 5:38 PM YRN Approved by: Reynaldo Wood MD on 11/20/2023 5:38 PM AKKATHIE Station ID: [id number]
[2023-11-20 22:30] VITALS: BP 121/82; O2SAT 99
== END 2023-11-20 22:26 | disposition home or self-care (01) ==
LOC: EDUNIT# → ED 18:02
DX: Z43.1 Encounter for attention to gastrostomy (principal); I69.391 Dysphagia following cerebral infarction; I69.359 Hemiplegia and hemiparesis following cerebral infarction affecting unspecified side; R13.10 Dysphagia, unspecified; I10 Essential (primary) hypertension; E78.00 Pure hypercholesterolemia, unspecified
CPT/HCPCS: 43762; 74018; 99283; Q9963

== ENCOUNTER 2023-11-20 22:10 | Outpatient (CLI) | payer MEDICARE, OTHER | END 2023-11-20 22:11 | LOC: EMS 22:10 | PROVIDERS: ATTEND Emergency Medicine | DX: R41.82 Altered mental status, unspecified (principal); Z74.01 Bed confinement status | CPT/HCPCS: A0425; A0428 ==

== ENCOUNTER 2023-11-21 16:40 | Emergency (ER) | payer MEDICARE, OTHER ==
--- NOTE | 2023-11-21 17:01 | ED Physician Documentation ---
History of Present Illness - Stated complaint Stated Complaint: PEG TUBE - Chief complaint Chief Complaint: Abd Pain - History obtained from History obtained from: Patient, EMS - History of Present Illness Timing: Today Pain level max: 0 Pain level now: 0 - Additonal information Additional information: 73-year-old male with a history of stroke and continued dysphagia. G-tube dependent. Pulled out his G-tube at his nursing facility today. It was an 18 [place] G-tube that I had replaced yesterday. No other complaints. PD PAST MEDICAL HISTORY - Past Medical History Cardiovascular: Hypertension, High cholesterol Respiratory: None Endocrine/Autoimmune: None GI: None : None HEENT: Chronic vision loss, Chronic hearing loss Psych: None Musculoskeletal: Osteoarthritis Derm: None - Past Surgical History Past Surgical History: Yes HEENT: Tonsil/Adenoidectomy - Present Medications Home Medications: Ambulatory Orders Medication Instructions Recorded Confirmed Lovastatin [Altoprev] 60 mg PO HS 02/21/17 11/21/23 hydroCHLOROthiazide 25 mg PO DAILY 02/21/17 11/21/23 [Hydrochlorothiazide] sulfaSALAzine [Azulfidine] 1,500 mg PO DAILY 02/21/17 11/21/23 Amlodipine Besylate [Norvasc] 10 mg PO DAILY 11/04/23 11/21/23 Atorvastatin Calcium [Lipitor] 80 mg PO DAILY 11/04/23 11/21/23 Enoxaparin Sodium [Lovenox] 40 mg SQ DAILY 11/04/23 11/21/23 Famotidine [Acid Capsule Inspector] 20 mg PO DAILY 11/04/23 11/21/23 Lisinopril [Zestril] 5 mg PO DAILY 11/04/23 11/21/23 Montelukast [Singulair] 10 mg PO QPM 11/04/23 11/21/23 - Allergies Allergies/Adverse Reactions: Allergies Allergy/AdvReac Type Severity Reaction Status Date / Time peanut Allergy Anaphylaxis Verified 11/21/23 16:50 potato Allergy Anaphylaxis Verified 11/21/23 16:50 pseudoephedrine Allergy Unknown Verified 11/21/23 16:50 [From [facility]] - Social History Does the pt smoke?: No Smoking Status: Never smoker Does the pt drink ETOH?: No Does the pt have substance abuse?: No - Immunizations Immunizations are current?: Yes - POLST Patient has POLST: No PD ED PE NORMAL - Vitals Vital signs reviewed: Yes - General General: No acute distress, Other (Alert, at his mental baseline) - HEENT HEENT: Moist mucous membranes - Neck Neck: Supple, no meningeal sign - Cardiac Cardiac: RRR - Respiratory Respiratory: No respiratory distress, Clear bilaterally - Abdomen Abdomen: Other (Gastrostomy stoma in the left upper quadrant. No signs of infection) - Derm Derm: Warm and dry - Neuro Neuro: Other (Alert, at his mental baseline) Results - Vitals Vitals: Vital Signs - 24 hr 11/21/23 11/21/23 16:46 17:21 Temperature 36.5 C 36.1 C L Heart Rate 93 91 Respiratory 20 22 Rate Blood Pressure 106/71 115/70 O2 Saturation 96 98 Oxygen O2 Source Room air PD Medical Decision Making - ED course Complexity details: reviewed results, re-evaluated patient, considered differential, d/w patient ED course: 18 [place] gastrostomy tube was placed through the existing stoma. Replaced easily. Stomach contents were able to be pulled back into the tube. Flushes easily. No pain. The gastrostomy tube was secured with 2 sutures. An abdominal binder was placed as well. We will have him follow-up with his doctor for further care. This document was made in part using voice recognition software. While efforts are made to proofread this document, sound alike and grammatical errors may occur. Departure - Departure Disposition: 01 Home, Self Care Clinical Impression: Dislodged gastrostomy tube, Gastrostomy tube dependent Condition: Good Instructions: ED G Tube Replacement Follow-Up: your,doctor in 3 days [Other] Comments: Please follow-up with surgery and his doctor as scheduled. The G-tube was sutured in place today. An abdominal binder was also placed. This should be kept in place whenever the feeding tube is not being used. This will help to prevent him from grabbing the feeding tube and removing it. Do not wrap the area too tightly. Forms: PCP List Discharge Date/Time: 11/21/23 17:26
[2023-11-21 17:25] VITALS: BP 115/70; O2SAT 98
== END 2023-11-21 17:26 | disposition home or self-care (01) ==
LOC: EDUNIT# → ED 16:40
DX: Z43.1 Encounter for attention to gastrostomy (principal); I10 Essential (primary) hypertension; E78.00 Pure hypercholesterolemia, unspecified; Z79.899 Other long term (current) drug therapy; Z79.01 Long term (current) use of anticoagulants
CPT/HCPCS: 43762

== ENCOUNTER 2023-12-05 08:20 | Outpatient (CLI) | payer MEDICARE, OTHER ==
[2023-12-05 08:49] LABS: ALBUMIN 3.5 g/dL (3.2-5.5); ALBUMIN/GLOBULIN RATIO 1.5 (1.0-2.2); BILIRUBIN,TOTAL 0.4 mg/dL (0.2-1.0); CALCIUM 9.7 mg/dL (8.5-10.3); CREATININE 0.7 mg/dL (0.6-1.3); POTASSIUM 3.7 mmol/L (3.5-4.5); TOTAL PROTEIN 5.9 g/dL (6.4-8.9)
== END 2023-12-05 08:21 | disposition home or self-care (01) ==
LOC: LAB.R 08:20
PROVIDERS: ATTEND Registered Nurse
DX: I69.218 Other symptoms and signs involving cognitive functions following other nontraumatic intracranial hemorrhage (principal)
CPT/HCPCS: 80053

== ENCOUNTER 2023-12-25 08:00 | Outpatient (CLI) | payer MEDICARE, OTHER | END 2023-12-25 23:59 | disposition home or self-care (01) | LOC: LAB.R 08:00 | PROVIDERS: ATTEND Family Medicine | DX: Z51.81 Encounter for therapeutic drug level monitoring (principal); Z79.899 Other long term (current) drug therapy | CPT/HCPCS: 80177 ==

== ENCOUNTER 2024-01-01 08:00 | Outpatient (CLI) | payer MEDICARE, OTHER ==
[2024-01-01 08:35] LABS: CALCIUM 9.6 mg/dL (8.5-10.3); CREATININE 0.6 mg/dL (0.6-1.3); POTASSIUM 4.2 mmol/L (3.5-4.5)
== END 2024-01-01 23:59 | disposition home or self-care (01) ==
LOC: LAB.R 08:00
PROVIDERS: ATTEND Family Medicine
DX: I69.254 Hemiplegia and hemiparesis following other nontraumatic intracranial hemorrhage affecting left non-dominant side (principal)
CPT/HCPCS: 80048

== ENCOUNTER 2024-01-24 08:00 | Outpatient (CLI) | payer MEDICARE, OTHER | END 2024-01-24 23:59 | disposition home or self-care (01) | LOC: LAB.R 08:00 | DX: I69.291 Dysphagia following other nontraumatic intracranial hemorrhage (principal); I69.254 Hemiplegia and hemiparesis following other nontraumatic intracranial hemorrhage affecting left non-dominant side | CPT/HCPCS: 80177 ==

== ENCOUNTER 2024-02-25 08:00 | Outpatient (CLI) | payer MEDICARE, OTHER ==
[2024-02-25 17:28] LABS: BILIRUBIN,URINE NEGATIVE (NEGATIVE); GLUCOSE, URINE (UA) NEGATIVE (NEGATIVE); KETONES,URINE (UA) NEGATIVE (NEGATIVE); LEUKOCYTE ESTERASE, URINE NEGATIVE (NEGATIVE); NITRITE,URINE NEGATIVE (NEGATIVE); OCCULT BLOOD,URINE NEGATIVE (NEGATIVE); PROTEIN,URINE NEGATIVE (NEGATIVE); UROBILINOGEN,URINE 0.2 (NORMAL) E.U./dL (NORMAL)
[2024-02-25 17:42] LABS: CLARITY,URINE CLEAR (CLEAR)
== END 2024-02-25 23:59 | disposition home or self-care (01) ==
LOC: LAB.R 08:00
PROVIDERS: ATTEND Family Medicine
DX: N39.0 Urinary tract infection, site not specified (principal); Z79.899 Other long term (current) drug therapy
CPT/HCPCS: 80177; 81001; 81003; 87086

== ENCOUNTER 2024-03-01 23:14 | Outpatient (CLI) | payer MEDICARE, OTHER | END 2024-03-01 23:15 | disposition critical access hospital (66) | LOC: EMS 23:14 | DX: T85.528A Displacement of other gastrointestinal prosthetic devices, implants and grafts, initial encounter (principal) | CPT/HCPCS: A0425; A0429 ==

== ENCOUNTER 2024-03-01 23:19 | Day surgery (SDC) | payer MEDICARE, OTHER ==
--- NOTE | 2024-03-01 23:21 | ED Physician Documentation ---
History of Present Illness - Stated complaint Stated Complaint: FEEDING TUBE ISSUE - Additonal information Additional information: 74-year-old male with history of PEG tube, hemorrhagic stroke presents with concern for having removed PEG tube. He has had a PEG tube for years. He accidentally pulled out his feeding tube. No other new concerns. No pain, F/C, N/V, changes to bowels or bladder, acute rash or other new concerns. ROS Constitutional: no fever, no chills Eyes: no visual disturbance, no discharge Ears, Nose, Mouth, Throat: no rhinorrhea, no sore throat Cardiovascular: no chest pain, no palpitations Respiratory: no cough, no shortness of breath Gastrointestinal: no abdominal pain, no vomiting, no diarrhea Genitourinary: no dysuria, no hematuria Musculoskeletal: no back pain, no neck stiffness Skin: no rash, no acute wound Neurological: no focal weakness, no focal numbness PD PAST MEDICAL HISTORY - Past Medical History Cardiovascular: Hypertension, High cholesterol Respiratory: None Endocrine/Autoimmune: None GI: None : None HEENT: Chronic vision loss, Chronic hearing loss Psych: None Musculoskeletal: Osteoarthritis Derm: None - Past Surgical History Past Surgical History: Yes HEENT: Tonsil/Adenoidectomy - Present Medications Home Medications: Ambulatory Orders Medication Instructions Recorded Confirmed Lovastatin [Altoprev] 60 mg PO HS 02/21/17 11/21/23 hydroCHLOROthiazide 25 mg PO DAILY 02/21/17 11/21/23 [Hydrochlorothiazide] sulfaSALAzine [Azulfidine] 1,500 mg PO DAILY 02/21/17 11/21/23 Amlodipine Besylate [Norvasc] 10 mg PO DAILY 11/04/23 11/21/23 Atorvastatin Calcium [Lipitor] 80 mg PO DAILY 11/04/23 11/21/23 Enoxaparin Sodium [Lovenox] 40 mg SQ DAILY 11/04/23 11/21/23 Famotidine [Acid Group Insurance Specialist] 20 mg PO DAILY 11/04/23 11/21/23 Lisinopril [Zestril] 5 mg PO DAILY 11/04/23 11/21/23 Montelukast [Singulair] 10 mg PO QPM 11/04/23 11/21/23 - Allergies Allergies/Adverse Reactions: Allergies Allergy/AdvReac Type Severity Reaction Status Date / Time peanut Allergy Anaphylaxis Verified 11/21/23 16:50 potato Allergy Anaphylaxis Verified 11/21/23 16:50 pseudoephedrine Allergy Unknown Verified 11/21/23 16:50 [From [facility]] - Social History Does the pt smoke?: No Smoking Status: Never smoker Does the pt drink ETOH?: No Does the pt have substance abuse?: No - Immunizations Immunizations are current?: Yes - POLST Patient has POLST: No PD ED PE NORMAL - Free text exam Free text exam: Const: no acute distress, non toxic appearing; calm, conversant, pleasant, at mental status baseline Eyes: PERRLA, EOMI ENT: mucous membranes moist Neck: supple, non-tender Resp: no respiratory distress, clear to auscultation bilaterally Card: regular rate and rhythm, no murmurs Abd: non tender diffusely, no rigidity or rebound or guarding; stoma where feeding tube was is non tender, without surrounding rash, crepitus, induration, tenderness, discharge; chronic skin changes present, however, with large fleshy mass at stoma site Back: no T or L spine tenderness, no CVA tenderness bilaterally Extrem: no deformities, no swelling bilateral lower extremities Neuro: alert and interactive, 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, grossly baseline sensation and strength all extremities with chronic changes Skin: no rash, warm and dry Results - Vitals Vitals: Vital Signs - 24 hr 03/01/24 23:25 Temperature 37.1 C Heart Rate 101 H Respiratory 18 Rate Blood Pressure 134/76 H O2 Saturation 96 Oxygen O2 Source Room air - Labs Labs: Laboratory Tests 03/02/24 03/02/24 01:12 01:12 WBC 10.7 RBC 4.73 Hgb 15.5 Hct 46.4 MCV 98.1 H MCH 32.8 H MCHC 33.4 RDW 12.4 Plt Count 243 MPV 11.1 Neut # (Auto) 7.4 H Lymph # (Auto) 1.7 [place] # (Auto) 1.3 H Eos # (Auto) 0.4 Baso # (Auto) 0.0 Absolute Nucleated RBC 0.00 Nucleated RBC % 0.0 Sodium 138 Potassium 4.3 Chloride 102 Carbon Dioxide 32 Anion Gap 4.0 L BUN 15 Creatinine 0.6 Estimated GFR (MDRD) 131 Glucose 88 Calcium 9.5 Total Bilirubin 0.3 AST 12 ALT 16 Alkaline Phosphatase 60 Total Protein 6.2 L Albumin 3.6 Globulin 2.6 Albumin/Globulin Ratio 1.4 PD Medical Decision Making - ED course ED course: This patients presentation is most suggestive of accidental removal of feeding tube in a patient with a mature tract, without current evidence of obstruction, infection, pain, or other changes. I am requesting we find clean feeding tube for patient as soon as possible, and I will replace it. Despite multiple times at bedside, I am unable to get past fleshy mass at stoma site to reinsert feeding tube. Accordingly, this will require admission for moore rgical assessment. I spoke with Dr. Stanton of hospitalist service. I spoke with Dr. Simeon at 1258am who kindly agreed to admission, with patient to go to hospitalist. I am placing pt on mIVF and ordering screening CBC, CMP. I spoke with patient's spouse Meli on phone, who is aware of plan and can be available to consent to surgical treatment in morning. Labs: CBC with no leukocytosis, anemia, thrombocytopenia. CMP grossly reassuring. Admitting patient in stable condition. Departure - Departure Disposition: 66 [facility] DC/Xfer Clinical Impression: Feeding tube dysfunction Qualifiers: Encounter type: initial encounter Qualified Code(s): T85.598A - Other mechanical complication of other gastrointestinal prosthetic devices, implants and grafts, initial encounter Condition: Stable Forms: PCP List
[2024-03-02 01:19] LABS: BASOPHILS % (AUTO) 0.4 %; EOSINOPHILS # (AUTO) 0.4 10^3/uL (0.0-0.7); EOSINOPHILS % (AUTO) 3.5 %; HCT - HEMATOCRIT 46.4 % (42.0-52.0); HGB - HEMOGLOBIN 15.5 g/dL (14.0-18.0); LYMPHOCYTES # (AUTO) 1.7 10^3/uL (1.5-3.5); LYMPHOCYTES % (AUTO) 15.4 %; MEAN CORPUSCULAR HEMOGLOBIN 32.8 pg (27.0-31.0); MEAN CORPUSCULAR HGB CONC 33.4 g/dL (32.0-36.0); MEAN CORPUSCULAR VOLUME 98.1 fL (80.0-94.0); MEAN PLATELET VOLUME 11.1 fL (7.4-11.4); MONOCYTES # (AUTO) 1.3 10^3/uL (0.0-1.0); MONOCYTES % (AUTO) 11.7 %; NEUTROPHILS # (AUTO) 7.4 10^3/uL (1.5-6.6); NEUTROPHILS % (AUTO) 68.7 %; PLT - PLATELET COUNT 243 10^3/uL (130-450); RED BLOOD COUNT 4.73 10^6/uL (4.70-6.10); RED CELL DISTRIBUTION WIDTH 12.4 % (12.0-15.0); WHITE BLOOD COUNT 10.7 x10^3/uL (4.8-10.8)
[2024-03-02] MEDS: SODIUM CHLORIDE 0.9% 1,000 ML IV STA (01:21)
[2024-03-02 01:34] LABS: ALBUMIN 3.6 g/dL (3.2-5.5); ALBUMIN/GLOBULIN RATIO 1.4 (1.0-2.2); BILIRUBIN,TOTAL 0.3 mg/dL (0.2-1.0); CALCIUM 9.5 mg/dL (8.5-10.3); CREATININE 0.6 mg/dL (0.6-1.3); POTASSIUM 4.3 mmol/L (3.5-4.5); TOTAL PROTEIN 6.2 g/dL (6.4-8.9)
[2024-03-02] MEDS: LIDOCAINE VISCOUS 2% 15 ML UDC MM STA (02:58)
[2024-03-02] MEDS ORDERED: ACETAMINOPHEN 325 MG TABLET PO PRN (05:16)
[2024-03-02] MEDS ORDERED: ONDANSETRON 4 MG/2 ML VIAL IVP PRN (05:16)
[2024-03-02] MEDS ORDERED: HYDROmorphone 0.5 MG/0.5 ML SYRINGE IVP PRN (05:16)
[2024-03-02] MEDS ORDERED: SODIUM CHLORIDE FLUSH 0.9% 10 ML SYRINGE IVP PRN (05:16)
[2024-03-02] MEDS ORDERED: hydrALAZINE INJ 20 MG/ML VIAL IVP PRN (05:23)
[2024-03-02] MEDS ORDERED: IPRATROPIUM/ALBUTEROL 3 ML NEB INH PRN (05:24)
--- NOTE | 2024-03-02 05:34 | HISTORY & PHYSICAL EXAMINATION ---
Chief Complaint - Chief Complaint Chief Complaint: G tube malfunction History of Present Illness - Admitted From Admitted From:: ED - History Obtained From Records Reviewed: EMR History obtained from: ED and patient Exam Limitations: Tele medicine - History of Present Illness HPI Comment/Other: 74M c hx of CVA c associated dysphagia and subsequent G tube placement now presenting with report of dislodged G tube. It is unclear when the event happened or how it happened as patient is not a reliable historian. EMR indicat es prior ED visit for G tube malfunction as well. Currently, patient mentions some abdominal discomfort. No report of vomiting or diarrhea in the ED. ED staff attempted bedside reinsertion of G tube however unsuccessful. ED staff spoke with oncall general surgeon who will see and address on consultation. History - Past Medical History Cardiovascular: reports: Hypertension, High cholesterol Respiratory: reports: None Endocrine/Autoimmune: reports: None GI: reports: None : reports: None HEENT: reports: Chronic vision loss, Chronic hearing loss Psych: reports: None Musculoskeletal: reports: Osteoarthritis Derm: reports: None MRSA Hx?: No - Past Surgical History HEENT: reports: Tonsil/Adenoidectomy - POLST Patient has POLST: No Meds/Allgy - Home Medications Home Medications: Ambulatory Orders Medication Instructions Recorded Confirmed Lovastatin [Altoprev] 60 mg PO HS 02/21/17 11/21/23 hydroCHLOROthiazide 25 mg PO DAILY 02/21/17 11/21/23 [Hydrochlorothiazide] sulfaSALAzine [Azulfidine] 1,500 mg PO DAILY 02/21/17 11/21/23 Amlodipine Besylate [Norvasc] 10 mg PO DAILY 11/04/23 11/21/23 Atorvastatin Calcium [Lipitor] 80 mg PO DAILY 11/04/23 11/21/23 Enoxaparin Sodium [Lovenox] 40 mg SQ DAILY 11/04/23 11/21/23 Famotidine [Acid Staff Technologist] 20 mg PO DAILY 11/04/23 11/21/23 Lisinopril [Zestril] 5 mg PO DAILY 11/04/23 11/21/23 Montelukast [Singulair] 10 mg PO QPM 11/04/23 11/21/23 - Allergies Allergies/Adverse Reactions: Allergies Allergy/AdvReac Type Severity Reaction Status Date / Time peanut Allergy Anaphylaxis Verified 11/21/23 16:50 potato Allergy Anaphylaxis Verified 11/21/23 16:50 pseudoephedrine Allergy Unknown Verified 11/21/23 16:50 [From [facility]] Review of Systems - Other Findings Other Findings: limited 2/2 poor historian. hx of CVA Exam - Vital Signs Reviewed Vital Signs: Yes Vital Signs: Vital Signs x48h Temp Pulse Resp BP Pulse Ox 03/01/24 23:25 37.1 C 101 H 18 134/76 H 96 - Physical Exam General Appearance: positive: No acute distress, Alert Eyes Bilateral: positive: Normal inspection ENT: positive: ENT inspection nml Neck: positive: Nml inspection Abdomen: positive: Tenderness (mild) Skin: positive: Color nml Extremities: positive: Nml appearance Neurologic/Psychiatric: positive: CN's nml (2-12). negative: Oriented x3 Conclusion/Plan - Problem List (1) Malfunction of gastrostomy tube Conclusion/Plan: recurrent episodes of G tube being dislodged. unsuccessful reinsertion at bedside in the ED. npo while awaiting Gen surgery consult and assistance with replacement. followup with Gen surgery. pain control. antiemetics. monitor am labs. (2) Hypertension Conclusion/Plan: controlled. consider restart home antihypertensives after G tube replacement. prn hydralazine iv for additional coverage. (3) Hyperlipidemia Conclusion/Plan: managed on statin therapy. consider restart after G tube replacement (4) GERD (gastroesophageal reflux disease) Conclusion/Plan: managed on famotidine. will cover with iv famotidine (5) History of hemorrhagic cerebrovascular accident (CVA) with residual deficit Conclusion/Plan: stable and baseline. address blood pressure and HLD. consider starting patient on asa for stroke prevention after G tube procedure. followup lipid panel and hgba1c for secondary prevention. - Lab Results Lab results reviewed: Yes Fish Bones: 03/02/24 01:12 03/02/24 01:12 - Diagnostic Imaging Results Diagnostic Imaging Results: negative: Prelim report reviewed, Final report reviewed Core Measures - Anticipated LOS I expect patient to be DC'd or transferred within 96 hours.: Yes - Issues Hospital Issues and Management Plan: The patient consented to receive this telemedicine service, which I performed via live two-way audiovisual equipment. The patient is at ([facility]) and I am physically in [facility]. A nurse assisted me in the visit. - DVT/VTE - Prophylaxis VTE/DVT Device ordered at admit?: Yes Telemedicine Consult Details - Provider Location & Consult Time Telemedicine consultation conducted via videoconferencing?: Yes List names and roles of persons who participated in consult:: ED and patient Telemedicine provider location:: [facility] Time Telemedicine consult began:: 05:15 Time Telemedicine consult completed:: 06:00
[2024-03-02] MEDS ORDERED: SODIUM CHLORIDE 0.9% 1,000 ML IV SCH (06:00)
[2024-03-02 06:17] LABS: HCT - HEMATOCRIT 45.7 % (42.0-52.0); HGB - HEMOGLOBIN 15.1 g/dL (14.0-18.0); MEAN CORPUSCULAR HEMOGLOBIN 31.9 pg (27.0-31.0); MEAN CORPUSCULAR VOLUME 96.6 fL (80.0-94.0); MEAN PLATELET VOLUME 11.2 fL (7.4-11.4); RED BLOOD COUNT 4.73 10^6/uL (4.70-6.10); RED CELL DISTRIBUTION WIDTH 12.5 % (12.0-15.0); WHITE BLOOD COUNT 10.2 x10^3/uL (4.8-10.8)
[2024-03-02 06:21] LABS: INR 1.1 (0.8-1.2); PT - PROTHROMBIN TIME 12.6 secs (9.9-12.6)
[2024-03-02 06:28] LABS: CHOL/HDL RATIO 2.9 (<5.0); CHOLESTEROL 101 mg/dL; HDL CHOLESTEROL 35 mg/dL; LDL CHOLESTEROL,CALCULATED 51 mg/dL; LDL/HDL RATIO 1.5 (<3.6); TRIGLYCERIDES 74 mg/dL; VLDL CHOLESTEROL 15 mg/dL
[2024-03-02 06:30] LABS: ALBUMIN 3.4 g/dL (3.2-5.5); ALBUMIN/GLOBULIN RATIO 1.4 (1.0-2.2); ALKALINE PHOSPHATASE 64 IU/L (42-121); ALT ALANINE AMINOTRANSFERASE 18 IU/L (10-60); AST ASPARTATE AMINOTRANSFERASE 13 IU/L (10-42); BILIRUBIN,TOTAL 0.5 mg/dL (0.2-1.0); BUN - BLOOD UREA NITROGEN 15 mg/dL (6-20); CALCIUM 9.3 mg/dL (8.5-10.3); CARBON DIOXIDE - CO2 27 mmol/L (21-32); CHLORIDE 104 mmol/L (101-111); CREATININE 0.5 mg/dL (0.6-1.3); GFR - MDRD 162 (>89); GLUCOSE 98 mg/dL (74-104); MAGNESIUM 1.6 mg/dL (1.7-2.3); PHOSPHORUS 2.9 mg/dL (2.5-5.0); SODIUM 137 mmol/L (135-145); TOTAL PROTEIN 5.9 g/dL (6.4-8.9)
[2024-03-02 06:38] LABS: PROCALCITONIN < 0.05 ng/mL (<0.5)
[2024-03-02 06:46] LABS: THYROID STIMULATING HORMONE 1.68 uIU/mL (0.34-5.60)
[2024-03-02 07:51] LABS: ESTIMATED AVERAGE GLUCOSE 108 mg/dL (70-100); HEMOGLOBIN A1c% 5.4 % (4.27-6.07)
[2024-03-02] MEDS ORDERED: SODIUM CHLORIDE FLUSH 0.9% 10 ML SYRINGE IVP SCH (09:00)
[2024-03-02] MEDS: FAMOTIDINE 20 MG/2 ML VIAL IVP SCH (09:37)
[2024-03-02] MEDS: PANTOPRAZOLE 40 MG VIAL IV SCH (09:38)
--- NOTE | 2024-03-02 12:54 | PROVIDER PROGRESS NOTE ---
Progress Note Admitted to medicine overnight for dislodged G tube. Unable to be replaced in ED. No other issues. CBC and BMP are unremarkable. surgeon able to replace G tube in ED. This will be completed this afternoon, and patient can discharge back to his facility. no indication to admit this patient. Can be same day surgery status with plans to return to facility after procedure complete
[2024-03-02] MEDS ORDERED: LIDOCAINE 1%-EPI 1:100000 20 ML MDV ONE (14:49)
--- NOTE | 2024-03-02 15:17 | ANESTHESIA ---
Pre-Anesthesia VS, & Labs - Diagnosis Dislodged feeding tube - Procedure endoscopic replacement of feeding tube Vital Signs: Temp Pulse Resp BP Pulse Ox O2 Flow Rate 37.1 C 96 18 112/87 H 96 03/02/24 07:30 03/02/24 14:42 03/02/24 14:42 03/02/24 14:42 03/02/24 14:42 Height: 6 ft 2 in Weight (kg): 91.1 kg Body Mass Index: 25.7 BMI Classification: Overweight - NPO >8 hours - Lab Results Current Lab Results: Laboratory Tests 03/02/24 06:08: Estimat Average Glucose 108 H, Hemoglobin A1c % 5.4 03/02/24 06:08: Triglycerides 74, Cholesterol 101, LDL Cholesterol, Calc 51, VLDL Cholesterol 15, HDL Cholesterol 35 L, LDL/HDL Ratio 1.5, Cholesterol/HDL Ratio 2.9 03/02/24 06:08: Sodium 137, Potassium 4.0, Chloride 104, Carbon Dioxide 27, Anion Gap 6.0, BUN 15, Creatinine 0.5 L, Estimated GFR (MDRD) 162, Glucose 98, Calcium 9.3, Phosphorus 2.9, Magnesium 1.6 L, Total Bilirubin 0.5, AST 13, ALT 18, Alkaline Phosphatase 64, Total Protein 5.9 L, Albumin 3.4, Globulin 2.5, Albumin/Globulin Ratio 1.4, Procalcitonin Immunoas < 0.05, TSH 1.68 03/02/24 06:08: PT 12.6, INR 1.1 03/02/24 06:08: WBC 10.2, RBC 4.73, Hgb 15.1, Hct 45.7, MCV 96.6 H, MCH 31.9 H, MCHC 33.0, RDW 12.5, Plt Count 246, MPV 11.2 03/02/24 01:12: Sodium 138, Potassium 4.3, Chloride 102, Carbon Dioxide 32, Anion Gap 4.0 L, BUN 15, Creatinine 0.6, Estimated GFR (MDRD) 131, Glucose 88, Calcium 9.5, Total Bilirubin 0.3, AST 12, ALT 16, Alkaline Phosphatase 60, Total Protein 6.2 L, Albumin 3.6, Globulin 2.6, Albumin/Globulin Ratio 1.4 03/02/24 01:12: WBC 10.7, RBC 4.73, Hgb 15.5, Hct 46.4, MCV 98.1 H, MCH 32.8 H, MCHC 33.4, RDW 12.4, Plt Count 243, MPV 11.1, Neut # (Auto) 7.4 H, Lymph # (Auto) 1.7, [place] # (Auto) 1.3 H, Eos # (Auto) 0.4, Baso # (Auto) 0.0, Absolute Nucleated RBC 0.00, Nucleated RBC % 0.0 Lab results reviewed: Yes Fish Bones: 03/02/24 06:08 03/02/24 06:08 Home Medications and Allergies Home Medications: Ambulatory Orders Levetiracetam [Keppra] 1,000 mg PEG BID 03/02/24 Metoprolol Tartrate [Lopressor] 25 mg PEG BID 03/02/24 Active Medications Acetaminophen (Acetaminophen 325 Mg Tablet) 650 mg PO Q4HR PRN PRN Reason: Pain 1 to 4, or Fever Albuterol/Ipratropium (Ipratropium/Albuterol 3 Ml Neb) 3 ml INH Q4HR PRN PRN Reason: Wheezing Famotidine (Famotidine 20 Mg/2 Ml Vial) 20 mg IVP BID [facility] Last Admin: 03/02/24 09:37 Dose: 20 mg Hydralazine HCl (Hydralazine Inj 20 Mg/Ml Vial) 10 mg IVP Q6H PRN PRN Reason: sbp>160 Hydromorphone HCl (Hydromorphone 0.5 Mg/0.5 Ml Syringe) 0.2 mg IVP Q2H PRN PRN Reason: Pain 8 to 10 Sodium Chloride (Normal Saline 0.9%) 1,000 mls @ 50 mls/hr IV .Q20H [facility] Ondansetron HCl (Ondansetron 4 Mg/2 Ml Vial) 4 mg IVP Q6HR PRN PRN Reason: Nausea / Vomiting Pantoprazole Sodium (Pantoprazole 40 Mg Vial) 40 mg IV DAILY [facility] Last Admin: 03/02/24 09:38 Dose: 40 mg Sodium Chloride (Sodium Chloride Flush 0.9% 10 Ml Syringe) 10 ml IVP PRN PRN PRN Reason: NEEDED PER PROVIDER ORDERS Sodium Chloride (Sodium Chloride Flush 0.9% 10 Ml Syringe) 10 ml IVP 0100,0900,1700 ROBERT sulfaSALAzine [Azulfidine] 1,500 mg PO DAILY 02/21/17 Atorvastatin Calcium [Lipitor] 80 mg PO DAILY 11/04/23 Enoxaparin Sodium [Lovenox] 40 mg SQ DAILY 11/04/23 Famotidine [Acid Asphalt Engineer] 20 mg PO DAILY 11/04/23 Lisinopril [Zestril] 5 mg PO DAILY 11/04/23 Montelukast [Singulair] 10 mg PO QPM 11/04/23 Levetiracetam [Keppra] 1,000 mg PEG BID 03/02/24 Metoprolol Tartrate [Lopressor] 25 mg PEG BID 03/02/24 Allergies/Adverse Reactions: Allergies Allergy/AdvReac Type Severity Reaction Status Date / Time peanut Allergy Anaphylaxis Verified 11/21/23 16:50 potato Allergy Anaphylaxis Verified 11/21/23 16:50 pseudoephedrine Allergy Unknown Verified 11/21/23 16:50 [From [facility]] Anes History & Medical History - Anesthetic History Anesthesia Complications: reports: No previous complications - Medical History Cardiovascular: reports: Hypertension, High cholesterol Pulmonary: reports: None Gastrointestinal: reports: None Urinary: reports: None Neuro: reports: CVA (hemorrhagic stroke 2022, residual effects) Musculoskeletal: reports: Osteoarthritis Endocrine/Autoimmune: reports: None Skin: reports: None Smoking Status: Never smoker Psychosocial: reports: No issues indicated History of Cancer?: No - Surgical History Eyes Ears Nose Throat (EENT): reports: Tonsil/Adenoidectomy Exam General: Alert, Cooperative, No acute distress Dental: Poor dentition Mouth Openin Fingerbreadth Neck Mobility: Reduced Mallampati classification: III Thyromental Distance: 4-6 cm Mental/Cognitive Status: Normal for patient Plan Anesthesia Type: General, Total IV Consent for Procedure(s) Verified and Reviewed: Yes Code Status: Attempt Resuscitation ASA classification: 3-Severe systemic disease Is this case an emergency?: Yes
[2024-03-02] MEDS ORDERED: PROPOFOL 500 MG/50 ML 500 MG/50 ML VIAL ONE (15:24)
[2024-03-02] MEDS ORDERED: LIDOCAINE-MPF 2% 5 ML VIAL ONE (15:55)
[2024-03-02] MEDS: LACTATED RINGERS 1,000 ML IV ONE (16:25)
[2024-03-02] MEDS: LIDOCAINE 1%-EPI 1:100000 50 ML VIAL SUBQ ONE (16:28)
--- NOTE | 2024-03-02 16:32 | CONSULTATION NOTE ---
Referring Provider Consult Date: 03/02/24 Chief Complaint - Chief Complaint Chief Complaint: pulled feeding tube out History of Present Illness - History Obtained From Records Reviewed: yes History obtained from: ED MD Exam Limitations: dementia - History of Present Illness HPI Comment/Other: feeding tube dependent due to stroke and dementia. He pulled his tube out. History - Past Medical History Cardiovascular: reports: Hypertension, High cholesterol Respiratory: reports: None Neuro: reports: CVA (hemorrhagic stroke 2022, residual effects) Endocrine/Autoimmune: reports: None GI: reports: None : reports: None HEENT: reports: Chronic vision loss, Chronic hearing loss Psych: reports: None Musculoskeletal: reports: Osteoarthritis Derm: reports: None MRSA Hx?: No - Past Surgical History HEENT: reports: Tonsil/Adenoidectomy - POLST Patient has POLST: No Meds/Allgy - Home Medications Home Medications: Ambulatory Orders Medication Instructions Recorded Confirmed sulfaSALAzine [Azulfidine] 1,500 mg PO DAILY 02/21/17 03/02/24 Atorvastatin Calcium [Lipitor] 80 mg PO DAILY 11/04/23 03/02/24 Enoxaparin Sodium [Lovenox] 40 mg SQ DAILY 11/04/23 03/02/24 Famotidine [Acid Granulizing Machine Operator] 20 mg PO DAILY 11/04/23 03/02/24 Lisinopril [Zestril] 5 mg PO DAILY 11/04/23 03/02/24 Montelukast [Singulair] 10 mg PO QPM 11/04/23 03/02/24 Levetiracetam [Keppra] 1,000 mg PEG BID 03/02/24 03/02/24 Metoprolol Tartrate [Lopressor] 25 mg PEG BID 03/02/24 03/02/24 - Allergies Allergies/Adverse Reactions: Allergies Allergy/AdvReac Type Severity Reaction Status Date / Time peanut Allergy Anaphylaxis Verified 11/21/23 16:50 potato Allergy Anaphylaxis Verified 11/21/23 16:50 pseudoephedrine Allergy Unknown Verified 11/21/23 16:50 [From [facility]ed] Review of Systems - Other Findings Other Findings: 10 pt ros as above otherwise unremarkable Exam - Vital Signs Vital Signs: Vital Signs x48h Temp Pulse Resp BP Pulse Ox 03/02/24 16:25 36.9 C 107 H 16 138/91 H 98 03/02/24 15:44 37.2 C 88 20 119/62 97 03/02/24 14:42 96 18 112/87 H 96 03/02/24 13:00 95 17 118/106 H 97 03/02/24 12:00 97 21 131/92 H 97 03/02/24 11:00 94 18 131/92 H 99 03/02/24 10:00 96 20 137/81 H 98 03/02/24 09:47 104 H 20 123/76 98 - Physical Exam General Appearance: positive: Alert, Other (talks however clearly has dementia) Eyes Bilateral: positive: PERRL, EOMI Neck: positive: Trachea midline Respiratory: positive: No respiratory distress Abdomen: positive: Non-tender, No distention, Other (g tube site with mound of granulation tissue and scar. no drainage or apparent lumen) Neurologic/Psychiatric: positive: Disoriented to person, Disoriented to place, Disoriented to time Conclusion/Plan - Problem List (1) History of hemorrhagic cerebrovascular accident (CVA) with residual deficit Conclusion/Plan: g tube has been removed and g tube lumen has sealed. g tube placement desired. consent obtained from family. parq held and consent obtained - Lab Results Lab results reviewed: Yes Fish Bones: 03/02/24 06:08 03/02/24 06:08
--- NOTE | 2024-03-02 16:37 | OPERATIVE REPORT ---
Operative Report - General Procedure Date: 03/02/24 Planned Procedure: g tube placement and egd Pre-Op Diagnosis: g tube has been removed and new g tube desired Procedure Performed: egd and g tube placement 22 fr ilda Post Op Diagnosis: same - Procedure Note Primary Surgeon: jeison heck Anesthesia Technique: Local, MAC Pathology: none Estimated Blood Loss (mL): 0 Indications: desire for feeding tube/ dysphagia Findings: tube placed in stomach under egd visualization Complications: none - Other Other Information/Narrative: The patient was prepped identified brought to the GI suite. Monitored anesthesia care and IV sedation was given. The G-tube site was prepped and draped. Hair was clipped. Betadine was used for prep. Lidocaine local anesthetic was given. He had a 1 and half centimeter nodule of hard scar tissue and granulation tissue which was excised. EGD scope was placed. The scar in the stomach from prior endoscopy tube was visualized. Under visualization h emostat was placed into the stomach and the old G-tube lumen was dilated. Under vision a 22 [place] ILDA tube was easily placed. Balloon was insufflated with 10 mL of water. He tolerated the procedure well. He was brought to recovery in good condition.
[2024-03-02 17:00] VITALS: BP 119/60; O2SAT 98
--- NOTE | 2024-03-02 18:54 | ANESTHESIA POST OP EVALUATION ---
Anesthesia Post Eval - Post Anesthesia Eval Vitals: Last Vital Signs Temp 36.6 C 03/02/24 16:30 Pulse 102 H 03/02/24 16:53 Resp 18 03/02/24 16:53 BP 119/60 03/02/24 16:53 Pulse Ox 98 03/02/24 16:53 O2 Flow Rate CV Function Including HR & BP: Stable Pain Control: Satisfactory Nausea & Vomiting: Negative Mental Status: Baseline Respiratory Status: Airway Patent Hydration Status: Satisfactory Anesthesia Complications: None
== END 2024-03-02 11:09 | disposition home or self-care (01) ==
LOC: EDUNIT# → ED 23:19 → SDS 03-02 11:08
PROVIDERS: ATTEND Physician Assistant Medical
DX: Z43.1 Encounter for attention to gastrostomy (principal); I69.391 Dysphagia following cerebral infarction; R13.10 Dysphagia, unspecified; I10 Essential (primary) hypertension; E78.5 Hyperlipidemia, unspecified; K21.9 Gastro-esophageal reflux disease without esophagitis; Z79.899 Other long term (current) drug therapy; F03.90 Unspecified dementia, unspecified severity, without behavioral disturbance, psychotic disturbance, mood disturbance, and anxiety
CPT/HCPCS: 36415; 43246; 80053; 80061; 83036; 83735; 84100; 84145; 84443; 85025; 85027; 85610; 96374; 99284; 99285; J3490; J7120; 83721

== ENCOUNTER 2024-03-02 17:09 | Outpatient (CLI) | payer MEDICARE, OTHER | END 2024-03-02 19:10 | disposition home or self-care (01) | LOC: EMS 17:09 | PROVIDERS: ATTEND Physician Assistant Medical | DX: R41.0 Disorientation, unspecified (principal); Z74.01 Bed confinement status | CPT/HCPCS: A0425; A0428 ==